=== PATIENT | female | born 1955 | race African-American/Black ===

== ENCOUNTER 2017-12-28 16:08 | Emergency (ER) | payer OTHER ==
[2017-12-28] MEDS ORDERED: NA CHLORIDE 0.9% 1,000 ML ONE (17:09)
--- NOTE | 2017-12-28 17:14 | RAD REPORT ---
EXAM DESCRIPTION: CT - Head Brain Wo Cont - 12/28/2017 4:57 pm CLINICAL HISTORY: HTN, headache COMPARISON: No comparisons TECHNIQUE: All CT scans are performed using dose optimization technique as appropriate and may inclu de automated exposure control or mA/KV adjustment according to patient size. FINDINGS: No intracranial hemorrhage, hydrocephalus or extra-axial fluid collection.No areas of brai n edema or evidence of midline shift. The paranasal sinuses and mastoids are clear. The calvarium is intact. IMPRESSION: No acute intracranial abnormality.
[2017-12-28 17:22] LABS: Absolute Lymphocytes (CBC) 1.6 K/uL (0.7-4.9); Absolute Monocytes 0.9 K/uL (0.1-1.3); Absolute Neutrophil 3.5 K/uL (1.8-8.0); Eosinophils % 2.5 % (0-4.4); Hematocrit 38.8 % (36.0-45.0); Lymphocytes % 25.8 % (15.3-44.8); MCH 30.2 pg (27.0-35.0); MCV 90.9 fL (80-100); MPV 8.5 fL (7.6-11.3); Monocytes % 14.1 % (3.3-12.3); RBC Red Blood Cell Count 4.26 M/uL (3.86-4.86)
--- NOTE | 2017-12-28 17:25 | RAD REPORT ---
EXAM DESCRIPTION: RAD - Chest Single View - 12/28/2017 5:18 pm CLINICAL HISTORY: HTN Chest pain. COMPARISON: Chest Single View dated 12/16/2015; CHEST SINGLE VIEW dated 07/04/2011 FINDINGS: Portable technique limits examination quality. The lungs are grossly clear. The heart is normal in size. No displaced fractures. IMPRESSION: No acute intrathoracic process suspected.
[2017-12-28 17:44] LABS: ALT/SGPT 20 U/L (12-78); AST/SGOT 18 U/L (15-37); Albumin 3.9 g/dL (3.4-5.0); Alkaline Phosphatase 62 U/L (45-117); BUN Blood Urea Nitrogen 14 mg/dL (7-18); Bicarbonate 29 mmol/L (21-32); Bilirubin Direct < 0.1 mg/dL (0-0.2); Bilirubin Total 0.3 mg/dL (0.2-1.0); CKMB Creatine Kinase MB 1.1 ng/mL (0.3-3.6); Creatine Phosphokinase 107 U/L (26-192); Glucose Level 88 mg/dL (74-106); Magnesium 2.3 mg/dL (1.8-2.4); Potassium 4.2 mmol/L (3.5-5.1); Protein, Total 7.8 g/dL (6.4-8.2); Sodium Level 139 mmol/L (136-145)
[2017-12-28 17:49] LABS: Protime INR 1.08
--- NOTE | 2017-12-28 18:05 | EDPHYS ---
Physician Documentation [facility] Name: Andreina Nguyen Age: 62 yrs Sex: Female : 1955 Arrival Date: 12/28/2017 Time: 16:10 Bed 20 Private MD: Kulwant Will B ED Physician Javier Armendariz HPI: 12/28 16:47 This 62 yrs old Black Female presents to ER via Ambulatory with complaints of High cp Blood Pressure. 16:47 The patient has elevated blood pressure and discovered this at home, with a home device.cp 16:50 Onset: The symptoms/episode began/occurred past few days. cp 16:50 Associated signs and symptoms: Pertinent positives: headache earlier today that cp resolved after taking aspirin, Pertinent negatives: chest pain, dizziness, dyspnea, vomiting. Severity of symptoms: in the emergency department the blood pressure is systolic of 184. Historical: - Allergies: 16:45 Sulfa (Sulfonamide Antibiotics); rv 16:45 Doxycycline; rv - Home Meds: 16:45 pilocarpine 5mg [Active]; alendronate 70 mg oral tab 1 tab once wkly [Active]; rv fexofenadine Oral [Active]; Docusate Sodium 50MG/TAB Oral 1 cap 2 times per day [Active]; Benefiber Sugar Free (dextrin) oral oral [Active]; hydroxychloroquine oral oral 1 tab 2 times per day [Active]; Valacyclovir Oral [Active]; FLUTICASONE [Active]; Vitamin D Oral [Active]; Naproxen Oral [Active]; - PMHx: 16:45 None; rv - PSHx: 16:45 None; rv - Immunization history:: Adult Immunizations up to date, Flu vaccine is not up to date. It has been more than one year since last vaccine. - Social history:: Smoking status: Patient/guardian denies using tobacco, never smoked. - Ebola Screening: : Patient negative for fever greater than or equal to 101.5 degrees Fahrenheit, and additional compatible Ebola Virus Disease symptoms Patient denies exposure to infectious person Patient denies travel to an Ebola-affected area in the 21 days before illness onset. ROS: 16:50 Constitutional: Negative for body aches, chills, fever, poor PO intake. cp 16:50 Eyes: Negative for injury, pain, redness, and discharge. cp 16:50 ENT: Negative for drainage from ear(s), ear pain, sore throat, difficulty swallowing, difficulty handling secretions. 16:50 Cardiovascular: Negative for chest pain, edema, palpitations. 16:50 Respiratory: Negative for cough, shortness of breath, wheezing. 16:50 Abdomen/GI: Negative for abdominal pain, nausea, vomiting, and diarrhea, black/tarry stool, rectal bleeding. 16:50 Back: Negative for pain at rest, pain with movement, radiated pain. 16:50 : Negative for urinary symptoms. 16:50 Skin: Negative for cellulitis, rash. 16:50 Neuro: Negative for altered mental status, dizziness, headache, loss of consciousness, syncope, near syncope, weakness. 16:50 All other systems are negative. Exam: 16:55 ECG was reviewed by the Attending Physician. cp 16:57 Constitutional: The patient appears in no acute distress, alert, awake, cp non-diaphoretic, non-toxic, well developed, well nourished. 16:57 Head/Face: Normocephalic, atraumatic. Eyes: Pupils equal round and reactive to light, cp extra-ocular motions intact. Lids and lashes normal. Conjunctiva and sclera are non-icteric and not injected. Cornea within normal limits. Periorbital areas with no swelling, redness, or edema. ENT: Nares patent. No nasal discharge, no septal abnormalities noted. Tympanic membranes are normal and external auditory canals are clear. Oropharynx with no redness, swelling, or masses, exudates, or evidence of obstruction, uvula midline. Mucous membranes moist. Neck: Trachea midline, no thyromegaly or masses palpated, and no cervical lymphadenopathy. Supple, full range of motion without nuchal rigidity, or vertebral point tenderness. No Meningismus. Chest/axilla: Normal chest wall appearance and motion. Nontender with no deformity. No lesions are appreciated. 16:57 Cardiovascular: Rate: normal, Rhythm: regular, Pulses: Pulses are 2+ in right radial artery and left radial artery. Heart sounds: murmur, not appreciated, rub, not appreciated, gallop, not appreciated, Edema: is not appreciated, JVD: is not appreciated. 16:57 Respiratory: the patient does not display signs of respiratory distress, Respirations: normal, no use of accessory muscles, no retractions, no splinting, no tachypnea, labored breathing, is not present, Breath sounds: are clear throughout, no decreased breath sounds, no stridor, no wheezing. 16:57 Abdomen/GI: Inspection: abdomen appears normal, Bowel sounds: active, all quadrants, Palpation: abdomen is soft and non-tender, in all quadrants, rebound tenderness, is not appreciated, voluntary guarding, is not appreciated, involuntary guarding, is not appreciated. 16:57 Back: pain, is absent, ROM is normal. 16:57 Skin: cellulitis, is not appreciated, no rash present. 16:57 Neuro: Orientation: to person, place \T\ time. Mentation: lucid, able to follow commands, Cerebellar function: is grossly normal, Motor: moves all fours, strength is normal, Sensation: is normal, Gait: is steady. Vital Signs: 17:00 BP 184 / 83; Pulse 78; Resp 16; Temp 97.3; Pulse Ox 100% ; Weight 83.91 kg (R); Height rv 5 ft. 9 in. (175.26 cm) (R); 17:20 BP 158 / 83; Pulse 70; Pulse Ox 100% on R/A; rv 18:25 BP 143 / 76; Pulse 68; Resp 17; Pulse Ox 98% on R/A; rv 17:00 Body Mass Index 27.32 (83.91 kg, 175.26 cm) rv MDM: 16:29 Patient medically screened. cp 18:01 Data reviewed: vital signs, nurses notes, lab test result(s), EKG, radiologic studies, cp CT scan, plain films, and as a result, I will discharge patient. 18:01 Differential diagnosis: hypertensive crisis, Malignant HTN, CVA, intracerebral cp hemorrhage, cardiac arrythmia. Counseling: I had a detailed discussion with the patient and/or guardian regarding: the historical points, exam findings, and any diagnostic results supporting the discharge/admit diagnosis, the presence of at least one elevated blood pressure reading (>120/80) during this emergency department visit, lab results, radiology results, the need for outpatient follow up, a family practitioner, to return to the emergency department if symptoms worsen or persist or if there are any questions or concerns that arise at home. Response to treatment: the patient's symptoms have markedly improved after treatment, and as a result, I will discharge patient. 12/28 16:43 Order name: Basic Metabolic Panel; Complete Time: 17:51 cp 12/28 16:43 Order name: CBC with Diff; Complete Time: 17:51 cp 12/28 17:52 Interpretation: Normal except: MN% 14.1. cp 12/28 16:43 Order name: Ckmb; Complete Time: 17:51 cp 12/28 16:43 Order name: CPK; Complete Time: 17:51 cp 12/28 16:43 Order name: LFT's; Complete Time: 17:51 cp 12/28 17:52 Interpretation: Normal except: GLOB 3.9; A/G 1.0. cp 12/28 16:43 Order name: Magnesium; Complete Time: 17:51 cp 12/28 16:43 Order name: CT Head Brain wo Cont; Complete Time: 17:26 cp 12/28 17:26 Interpretation: Report reviewed. 12/28 16:43 Order name: PT-INR; Complete Time: 17:51 12/28 17:52 Interpretation: PT 12.7; Reviewed. 12/28 16:43 Order name: Ptt, Activated; Complete Time: 17:51 12/28 16:43 Order name: Troponin (emerg Dept Use Only); Complete Time: 17:51 12/28 16:43 Order name: XRAY Chest (1 view); Complete Time: 17:26 12/28 17:05 Order name: Urine Dipstick--Ancillary (enter results) bd 12/28 16:43 Order name: EKG; Complete Time: 16:43 12/28 16:43 Order name: Cardiac monitoring; Complete Time: 17:25 12/28 16:43 Order name: EKG - Nurse/Tech; Complete Time: 17:25 cp 12/28 16:43 Order name: IV Saline Lock; Complete Time: 17:25 12/28 16:43 Order name: Labs collected and sent; Complete Time: 17:25 cp 12/28 16:43 Order name: O2 Per Protocol; Complete Time: 17:25 cp 12/28 16:43 Order name: O2 Sat Monitoring; Complete Time: 17:25 cp 12/28 16:43 Order name: Urine Dipstick-Ancillary (obtain specimen); Complete Time: 17:26 12/28 17:12 Order name: Vital Signs; Complete Time: 17:24 cp EC:55 Rate is 75 beats/min. Rhythm is regular. NE interval is normal. QRS interval is normal. cp QT interval is normal. T waves are Flattened in lead aVL. Interpreted by me. Reviewed by me. Administered Medications: 17:25 Drug: NS 0.9% 500 ml Route: IV; Rate: bolus; Site: right antecubital; rv 17:45 Drug: NS 0.9% 1000 ml Route: IV; Rate: 125 ml/hr; Site: right antecubital; rv 18:05 Follow up: IV Status: Order to discontinue infusion rv Disposition: 18:42 Co-signature as Attending Physician, Javier Armendariz MD. rn Disposition: 12/28/17 18:02 Discharged to Home. Impression: Elevated blood-pressure reading, without diagnosis of hypertension. - Condition is Stable. - Discharge Instructions: How to Take Your Blood Pressure, [id number], DASH Eating Plan, Form - Blood Pressure Record Sheet. - Medication Reconciliation Form, Thank You Letter, Antibiotic Education, Prescription Opioid Use form. - Follow up: Private Physician; When: 12/30/2017; Reason: Recheck today's complaints. - Problem is new. - Symptoms have improved. Signatures: Dispatcher [employer] EDMS Javier Armendariz MD MD rn Brian Baldwin PA PA cp Luis A Breaux, RN RN rv Corrections: (The following items were deleted from the chart) 18:27 18:02 12/28/2017 18:02 Discharged to Home. Impression: Elevated blood-pressure reading, rv without diagnosis of hypertension. Condition is Stable. Forms are Medication Reconciliation Form, Thank You Letter, Antibiotic Education, Prescription Opioid Use. Follow up: Private Physician; When: 12/30/2017; Reason: Recheck today's complaints. Problem is new. Symptoms have improved. cp
--- NOTE | 2017-12-28 18:05 | ER ---
Nurse's Notes [facility] Name: Andreina Nguyen Age: 62 yrs Sex: Female : 1955 Arrival Date: 12/28/2017 Time: 16:10 Bed 20 Private MD: Kulwant Will B Diagnosis: Elevated blood-pressure reading, without diagnosis of hypertension Presentation: 12/28 16:38 Presenting complaint: Patient states: "MY BLOOD PRESSURE IS HIGH THESE PAST FEW DAYS." rv NO CHEST PAIN. Transition of care: patient was not received from another setting of care. Onset of symptoms was December 28, 2017 at 15:00. Risk Assessment: Do you want to hurt yourself or someone else? Patient reports no desire to harm self or others. Initial Sepsis Screen: Does the patient meet any 2 criteria? No. Patient's initial sepsis screen is negative. Does the patient have a suspected source of infection? No. Patient's initial sepsis screen is negative. Care prior to arrival: None. 16:38 Method Of Arrival: Ambulatory rv 16:38 Acuity: ANU 3 rv Historical: - Allergies: 16:45 Sulfa (Sulfonamide Antibiotics); rv 16:45 Doxycycline; rv - Home Meds: 16:45 pilocarpine 5mg [Active]; alendronate 70 mg oral tab 1 tab once wkly [Active]; rv fexofenadine Oral [Active]; Docusate Sodium 50MG/TAB Oral 1 cap 2 times per day [Active]; Benefiber Sugar Free (dextrin) oral oral [Active]; hydroxychloroquine oral oral 1 tab 2 times per day [Active]; Valacyclovir Oral [Active]; FLUTICASONE [Active]; Vitamin D Oral [Active]; Naproxen Oral [Active]; - PMHx: 16:45 None; rv - PSHx: 16:45 None; rv - Immunization history:: Adult Immunizations up to date, Flu vaccine is not up to date. It has been more than one year since last vaccine. - Social history:: Smoking status: Patient/guardian denies using tobacco, never smoked. - Ebola Screening: : Patient negative for fever greater than or equal to 101.5 degrees Fahrenheit, and additional compatible Ebola Virus Disease symptoms Patient denies exposure to infectious person Patient denies travel to an Ebola-affected area in the 21 days before illness onset. Screenin:22 Abuse screen: Denies threats or abuse. Denies injuries from another. Nutritional rv screening: No deficits noted. Tuberculosis screening: No symptoms or risk factors identified. Fall Risk None identified. Assessment: 16:46 General: Appears in no apparent distress. comfortable, Behavior is calm, cooperative. rv Pain: Denies pain. Neuro: Level of Consciousness is awake, alert, obeys commands, Oriented to person, place, time, situation. Cardiovascular: Capillary refill < 3 seconds. Respiratory: Reports. GI: No signs and/or symptoms were reported involving the gastrointestinal system. : No signs and/or symptoms were reported regarding the genitourinary system. EENT: No signs and/or symptoms were reported regarding the EENT system. Derm: Skin is intact. Vital Signs: 17:00 BP 184 / 83; Pulse 78; Resp 16; Temp 97.3; Pulse Ox 100% ; Weight 83.91 kg (R); Height rv 5 ft. 9 in. (175.26 cm) (R); 17:20 BP 158 / 83; Pulse 70; Pulse Ox 100% on R/A; rv 18:25 BP 143 / 76; Pulse 68; Resp 17; Pulse Ox 98% on R/A; rv 17:00 Body Mass Index 27.32 (83.91 kg, 175.26 cm) rv ED Course: 16:10 Patient arrived in ED. mr 16:10 Kulwant Will MD is Private Physician. mr 16:29 [facility]. cp 16:29 Javier Armendariz MD is Attending Physician. cp 16:39 Triage completed. rv 16:57 CT Head Brain wo Cont In Process Unspecified. EDMS 17:13 EKG done, by area intelligence technician. reviewed by Brian BAILEY. sm3 17:15 Inserted saline lock: 20 gauge in right antecubital area, using aseptic technique. rv 17:18 XRAY Chest (1 view) In Process Unspecified. EDMS 18:26 No provider procedures requiring assistance completed. Patient did not have IV access rv during this emergency room visit. 18:26 Arm band placed on right wrist. rv 18:27 Patient has correct armband on for positive identification. Bed in low position. Side rv rails up X 1. Pulse ox on. Administered Medications: 17:25 Drug: NS 0.9% 500 ml Route: IV; Rate: bolus; Site: right antecubital; rv 17:45 Drug: NS 0.9% 1000 ml Route: IV; Rate: 125 ml/hr; Site: right antecubital; rv 18:05 Follow up: IV Status: Order to discontinue infusion rv Outcome: 18:02 Discharge ordered by . cp 18:26 Discharged to home ambulatory. rv 18:26 Condition: good 18:26 Discharge instructions given to patient, Instructed on discharge instructions, follow up and referral plans. 18:27 Patient left the ED. rv Signatures: Dispatcher [employer] EDCA Lexis Clifford Corey, PA PA cp Montes, Shakira 3 Luis A Breaux, RN RN rv
[2017-12-28 18:21] LABS: Urine Blood TRACE (NEG); Urine Glucose NEGATIVE (NEG); Urine Protein NEGATIVE (NEG)
[2017-12-28 18:49] VITALS: TEMP 97.3
[2017-12-28 18:51] VITALS: BP 143/76; O2SAT 98
--- NOTE | 2017-12-29 07:21 | EKG ---
Test Date: 2017-12-28 Test Time: 16:47:30 Relay Associate: AURELIA MEASUREMENT RESULTS: Intervals: Rate: 75 VT: 144 QRSD: 80 QT: 386 QTc: 431 [place]: P: 49 VT: 144 QRS: 31 T: 61 INTERPRETIVE STATEMENTS: Normal sinus rhythm Normal ECG Compared to ECG 12/16/2015 20:06:20 No significant changes Electronically Signed On 12-29-17 07:20:21 CDT by Benjamín Guadalupe
== END 2017-12-28 18:27 | disposition home or self-care (01) ==
LOC: ER 16:08
DX: R03.0 Elevated blood-pressure reading, without diagnosis of hypertension (principal); Z88.1 Allergy status to other antibiotic agents; Z88.2 Allergy status to sulfonamides
CPT/HCPCS: 36415; 70450; 71045; 80048; 80076; 81003; 82550; 82553; 83735; 84484; 85025; 85610; 85730; 93005; 99284; J7030

== ENCOUNTER 2019-04-10 15:53 | Inpatient (IN) | payer OTHER ==
--- OUTSIDE RECORDS SUMMARY | 2019-04-10 15:59 | XMS REPORT | Summary of Care ---
:1955 Author Organization [facility] [place] [address] Care Team Providers Name Role Phone Kulwant Will MD Primary Care Provider Reason for Visit Reason Comments Disease Management Encounter Details Date Type Department Care Team Description [facility] Rhe[facility] [address] [facility] [address] [facility] 8th Floor, [address] [place] [address] [place], [place] [id number] Allergies Active Allergy Reactions Severity Noted Date Comments Doxycycline Rash 02/22/2015 Bactrim Ds Hives 02/22/2015 documented as of this encounter (statuses as of 01/23/2019) Medications Medication Sig Dispensed Refills Start Date End Date Status fluticasone (FLONASE) 50 1 [place] by 0 Active MCG/ACT nasal spray Each Nostril route as needed. Vitamin D, Take by mouth 0 Active Cholecalciferol, 1000 daily. UNITS TABS valacyclovir (VALTREX) 1 0 09/13/2015 Active GM tablet Fexofenadine HCl (CHANCE Take by 0 Active OR) mouth. docusate sodium (COLACE) Take 50 mg by 0 Active 50 MG capsule mouth two times daily. Wheat Dextrin (BENEFIBER Take by 0 Active OR) mouth. irbesartan (AVAPRO) 75 MG Take 75 mg by 0 12/30/2017 Active tablet mouth nightly. PILOCARPINE HCL, ORAL, 5 TAKE 1 TABLET 90 Each 5 07/25/2018 Active MG TABSIndications: in PM Primary Sjogren's syndrome (HCCode) alendronate (FOSAMAX) 70 TAKE 1 TAB BY 12 Tab 2 12/26/2018 Active MG tablet MOUTH EVERY 7 DAYS. PILOCARPINE HCL, ORAL, 5 TAKE 1 TABLET 90 Each 1 01/10/2019 Active MG TABSIndications: EVERY Primary Sjogren's syndrome EVENING. (HCCode) hydroxychloroquine TAKE 1 TABLET 180 Tab 1 01/16/2019 Active (PLAQUINIL) 200 MG BY MOUTH TWICE tabletIndications: Primary A DAY Sjogren's syndrome (HCCode) documented as of this encounter (statuses as of 01/23/2019) Active Problems Patient Care Coordination Note PCP Dr. 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 documented as of this encounter Last Filed Vital Signs Vital Sign Reading Time Taken Comments Blood Pressure 155/88 01/23/2019 10:09 AM CDT Pulse 81 01/23/2019 10:09 AM CDT Temperature 36.8 C (98.3 F) 01/23/2019 10:09 AM CDT Respiratory Rate 17 01/23/2019 10:09 AM CDT Oxygen Saturation 100% 01/23/2019 10:09 AM CDT Inhaled Oxygen Concentration - - Weight 86 kg (189 lb 9.6 oz) 01/23/2019 10:09 AM CDT Height 175.3 cm (5' 9") 01/23/2019 10:09 AM CDT Body Mass Index 28 01/23/2019 10:09 AM CDT documented in this encounter Progress Notes Monique Dutton MD - 01/23/2019 9:45 AM CDT Andreina Nguyen is a 63 y.o. 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/SCL70/Jo1/ centromere negative Initially presented with bilateral parotid swelling-in 12/22 right parotid was swollen-no pain was treated with antibiotics and resolved over a week.Also dry eyes-documented by hardboard supervisor over 2 yearsago Has dental issues-needing dental implants/dentures Reports dryness makes difficulty swallowing No cough,sob -has maculopapular rash in sun exposed areas/upper back/buttocks-- no biopsy in the past.Skin rash-did not improve with antibiotics/topicals with local buttonholer-saw dermatology at [facility]-no biopsy-but diagnosed with Prurigo nodularis Also reported arthralgis in hands,wrist ,feet-AM stiffness lasts about an hour -not daily and takes Aleive .Frquent flares with hand/knee arthralgias lasting weeks.Started on Plaquenil 200 mg BID in01/23-has done well with this with fewer less intense flares-very occasional joint swelling at this time - feels less AM stiffness With Pilocarpine- no further episodes of glandular swelling Lost 25 pounds with lifestyle changes and feeling well and is maintaining Osteoporosis-was on Boniva improved-and now Fosamax-last DEXA 05/27 Has been seeing dermatology for prurigo nodularis on biopsy-covered entire /back /upper thighs-is on Minocycline Last seen 07/26-doing well-No new prurigo nodularis in well over a year Dryness itself doing well-with pilocarpine at night-causes flushing-no gland swelling No joint pain Continues to do well with arthritis,salivary swelling,sicca Numbness in back of right leg Plaquenil eye exam reviewed and scanned Past Medical History: Diagnosis Date Breast cyst cleared Postmenopausal REVIEW OF SYSTEMS: Constitutional: negative HEENT: parotiditis improved Cardiovascular: negative Respiratory: negative Genitourinary: negative Musculoskeletal:as in HPI GI:negative Skin: diffuse skin rash Neuro: negative Endo: negative Hemat: no cytopenias Psych:negative PHYSICAL EXAM Vitals: 01/23/19 1009 BP: 155/88 BP Location: left arm Patient Position: Sitting Cuff Size: regular Pulse: 81 Resp: 17 Temp: 98.3 F (36.8 C) SpO2: 100% Weight: 189 lb 9.6 oz (86 kg) Height: 5' 9" (1.753 m) Gen: Pleasant , well built in no acute distress; HEENT: No pallor or icterus; Moist mucus membranes. No oral or nasal ulcers; normal salivary pool.Nolacrimal enalrgement or conjunctival redness Neck: supple,no lymphadenopathy. Bilateral parotid enlargement-no tenderness Cardiovascular: regular rate and rhythm Respiratory: clear to auscultation bilaterally Gastrointestinal: soft, non-tender, non-distended, no liver, spleen or abnormal masses palpated Extremities:No clubbing, cyanosis or edema Musculoskeletal: No synovitis or tenderness -full range of motion of bilateral upper and lower extremities-puffiness in PIPs on right Neuro: No focal neurological deficits grossly Skin: Hyperpigmented healed lesions/back LABS REVIEWED IMPRESSION AND PLAN Primary Sjogren's syndrome Ms Nguyen has significant oral and ocular sicca,positive Ro antibodies associated with one episode ofsialolithiasis in parotid.No evidence of extraglandular complications at this time.Also no evidence of an overlap autoimmune disease clinically or immunologically Continue management or oral and ocular dryness-periodic eye/dental exams Continue Pilocarpine for preventing repeat episodes of sialadenitis-improved arthralgias/stiffness with Plaquenil Update labs todayinflammation markers,SPEP- Recent vitamin D 33 Skin rash Not concerning for SCLE per dermatology-on topical Clobetsol-refilled No clear response to plaquenil over 2 years -but improved with minocycline Periodic sialadenosis Discussed management of salivary gland swelling/pain Pilocarpine helped decrease frequency of swelling in gland in addition to hyration - PILOCARPINE HCL, ORAL, 5 MG TABS; Take 5 mg by mouth at bedtime. Therapeutic Drug Monitoring Plaquenil eye examok Osteopenia DEXA reviewed T score minus 2.9 in spine-05/27-Is on Fosamax RTC 6 months or sooner with any new issues documented in this encounter Plan of Treatment Name Type Priority Associated Diagnoses Order Schedule CBC W/AUTO DIFF WITH Lab Routine Therapeutic drug Ordered: 01/23/2019 PLATELETS monitoring SEDIMENTATION RATE MODIFIED Lab Routine Primary Sjogren's Ordered: 2018 WESTERGREN syndrome (HCCode) COMPREHENSIVE METABOLIC Lab Routine Therapeutic drug Ordered: 01/23/2019 PANEL monitoring C-REACTIVE PROTEIN Lab Routine Primary Sjogren's Ordered: 01/23/2019 syndrome (HCCode) IMMUNOFIXATION + PROTEIN Lab Routine Primary Sjogren's Ordered: 01/23/2019 ELECTROPHORESIS - SERUM syndrome (HCCode) VITAMIN D 25 HYDROXY Lab Routine Primary Sjogren's Ordered: 01/23/2019 syndrome (HCCode) URINALYSIS, COMPLETE Lab Routine Microscopic hematuria Ordered: 01/23/2019 W/REFLEX TO CULTURE RANDOM URINE Lab Routine Microscopic hematuria Ordered: 01/23/2019 PROTEIN/CREATININE Health Maintenance Due Date Last Done Comments COLON CANCER SCREENING: COLONOSCOPY 1955 MAMMOGRAM ANNUAL 1955 TETANUS SHOT (ADULT) 1970 BMI FOLLOW UP PLAN 1973 HEPATITIS C SCREENING 1973 HIV SCREENING 1973 CERVICAL CANCER SCREENING 3 YEAR FOLLOW UP 1976 FLU VACCINE > 6 MONTHS 12/08/2018 documented as of this encounter Results Not on filedocumented in this encounter Visit Diagnoses Diagnosis Primary Sjogren's syndrome (HCCode) - Primary Sicca syndrome Hypergammaglobulinemia Other specified diseases of blood and blood-forming organs Therapeutic drug monitoring Encounter for therapeutic drug monitoring Microscopic hematuria documented in this encounter Insurance Payer Benefit Plan / Subscriber ID Effective Dates Phone Address Type Group [facility] CHOICE/CHOICE xxxxxxxxx 2014-Present [address] [address] PPO PLUS/[facility] [address] documented as of this encounter
[2019-04-10] MEDS: Ringers Lactate 1,000 ML IV SCH ×2 (17:00→23:47)
[2019-04-10 17:01] LABS: Absolute Lymphocytes (CBC) 1.7 K/uL (0.7-4.9); Basophils % 0.6 % (0-1.3); Hematocrit 34.2 % (36.0-45.0); MPV 8.5 fL (7.6-11.3); RBC Red Blood Cell Count 3.78 M/uL (3.86-4.86)
[2019-04-10 17:09] VITALS: BMI 28.3
[2019-04-10 17:19] LABS: BUN Blood Urea Nitrogen 16 mg/dL (7-18); Bicarbonate 27 mmol/L (21-32); Glucose Level 81 mg/dL (74-106); Potassium 3.8 mmol/L (3.5-5.1); Sodium Level 142 mmol/L (136-145)
[2019-04-10] MEDS ORDERED: VANCOMYCIN/NS 1 gm 1 GM/250 ML BAG IVPB SCH (17:45)
[2019-04-10] MEDS ORDERED: PIPER/TAZO/NS 3.375gm 3.375 GM/100 ML BAG IVPB SCH (18:00)
--- NOTE | 2019-04-10 18:33 | RAD REPORT ---
EXAM DESCRIPTION: RAD - Chest Single View - 04/10/2019 6:19 pm CLINICAL HISTORY: cough Chest pain. COMPARISON: Chest Single View dated 12/28/2017; Chest Single View dated 12/16/2015; CHEST SINGLE VIEW d ated 07/04/2011 FINDINGS: Portable technique limits examination quality. The lungs are grossly clear. The heart is normal in size. No displaced fractures. IMPRESSION: No acute intrathoracic process suspected.
[2019-04-10] MEDS ORDERED: INFLUENZA VACCINE (for 3y+) 0.5 ML DOSE IMVAC ONE (20:00)
[2019-04-10] MEDS: HYDROCODONE/APAP 7.5/325 MG TAB PO PRN ×2 (20:06→23:59)
[2019-04-10] MEDS ORDERED: IRBESARTAN 75 MG PO SCH (21:00)
[2019-04-10] MEDS ORDERED: PILOCARPINE HCL 5 MG PO SCH (21:00)
--- NOTE | 2019-04-10 22:00 | CON ---
Date of Consultation: 04/10/2019 Brief History Of Present Illness: Patient is a pleasant 63-year-old female, who was seen by Dr. Lenka mercado in her office earlier in the day, who developed a right buttock swelling, pain, tenderness, redn ess, and spontaneous drainage of pus, beginning approximately 3 days ago. She went saw Dr. Hayden today, who deemed her appropriate for admission with IV antibiotics and asked that I see her for inci jessica and drainage of this abscess. Patient has not had similar episodes before in the past. She has Sjogren disease, but does not have any other sequelae of infectious disease at this time. She has h ad no systemic complaints. No constitutional complaints as well. Past Medical History: Significant for Sjogren disease, hypertension. Past Surgical History: Tubal ligation and tonsillectomy. Allergies: BACTRIM, DOXYCYCLINE. Home Medications: She has been taking aspirin p.o. Social History: She denies smoking, alcohol, or recreational drug use. Review of Systems: A 10-point review of systems other than HPI, denies. Physical Examination: General: At the time of my examination, she is awake, alert, and oriented. Psychiatric: She is appropriate and conversive. HEENT: She is normocephalic. Sclerae are anicteric. Mucous membranes are moist. Oropharynx is kemar ar. Neck: Supple. No JVD. Chest: Normal expansion and excursion. Cardiovascular: Regular rate and rhythm. Pulmonary: Clear to auscultation bilaterally. Abdomen: Soft, nontender, nondistended. No rebound or guarding. No focal peritonitis. Extremities: No clubbing, cyanosis, or edema. Focused examination of the back, she has a right butt ock abscess with purulent drainage consistent with a proximally 5 cm abscess in the subcutaneous posi tion of the right buttock. There is spontaneous drainage of purulent fluid and small cellulitis arou nd this area. Imaging And Laboratory Data: She has had no imaging performed. No labs were performed as well. Assessment And Plan: This is a 63-year-old female, who comes in with signs and symptoms of a right b uttock abscess. 1.IV fluid hydration. 2.Antibiotic coverage to Zosyn. 3.I have explained the risks, benefits, alternatives, incision and drainage of this buttock abscess. Patient agrees to proceed as indicated. TK/GELA Voice ID: [id number] Report ID: [id number]
[2019-04-10] MEDS: ONDANSETRON 4 MG/2 ML VIAL IV PRN (22:02)
--- NOTE | 2019-04-10 22:24 | CON ---
Date of Consultation: 04/10/2019 Additional Attending Physician: Rosario Hayden MD Reason For Consultation: Medical management. History Of Present Illness: Patient is a 63-year-old female with past medical history of hypertensio n, Sjogren syndrome, who was in her usual state of health until Wednesday. The day before Vee mendoza, patient had pain in her right buttocks, noticed some swelling and redness. Patient took some ibu profen and BC Powder when ibuprofen did not work for the pain. She does report some subjective fever and chills as well as some generalized malaise. Otherwise, denies any trauma. No insect bites or o ther abrasions to that area. Patient then contacted her PRESS HAND SUPERVISOR, Dr. Hayden, for further evaluation an d was admitted to the hospital. Patient's symptoms are constant, moderate, progressively worsening. Patient is immunocompromised, is on DMARDs for her Sjogren syndrome. Hospitalist service was consul nathan for medical management regarding her abscess. When seen on the floor, she was awake, alert, orie nted x3, in some mild discomfort due to pain. Past Medical History: Hypertension, Sjogren syndrome. Surgical History: Tonsillectomy and tubal ligation. Allergies: TO BACTRIM, WHICH CAUSES RASH AND TO DOXYCYCLINE, WHICH CAUSES MACULOPAPULAR RASH. Medications: List reviewed. Social History: Patient denies any tobacco use, alcohol use, or illicit drug use. Patient is indepe ndent in her activities of daily living. Family History: Brother had lung cancer. Other brother had liver cancer. Sister developed bladder cancer. Review of Systems: 10-point system reviewed, negative except as per HPI. Physical Examination: Vital Signs: Heart rate 80, blood pressure 152/80, respirations 19, O2 95% on room air. General: Awake, alert, oriented x3, in some mild distress, elderly female, somewhat ill appearing. HEENT: Normocephalic, atraumatic. PERRLA. EOMI. Dry mucous membranes. Oropharynx is clear. Conj unctivae anicteric. Neck: Supple. No JVD. Trachea midline. CV: S1, S2. Regular rate and rhythm. Peripheral pulses present. Respiratory: Moving air well bilaterally. No wheezing or stridor. No use of accessory muscles. Gastrointestinal: Abdomen is soft, nontender, nondistended. Positive bowel sounds. No guarding or rigidity. Extremities: No clubbing, cyanosis, or edema. No calf tenderness. Neuro: Cranial nerves 2 through 12 intact grossly. No focal neurological deficit. Speech is normal . Strength is 5/5 in bilateral upper and lower extremities. Sensation intact to light touch. Skin: Right buttock abscess with induration and pustular drainage mixed with blood, tender to palpat ion, surrounding erythema, warm to touch. Psych: Mood is okay. Affect is full. Insight and judgment are good. Laboratory Data: Sodium 142, potassium 3.8, chloride 110, CO2 27, BUN 16, creatinine 0.73, glucose 8 1, calcium 8.8. WBC 11.4, H and H 11.5 and 34.2, platelets 226, neutrophils 72%. Assessment: 63-year-old female: 1.Right gluteal abscess. We will start on broad spectrum IV antibiotics. Patient is already on Zos yn. We will add vancomycin for gram-positive coverage. We will obtain wound culture. Dr. Brian blackburn be taking the patient for I and D in a.m. No signs of sepsis. We will check procalcitonin. Whi te blood cell count is elevated. Patient has fevers and chills. Patient is immunocompromised due to being on DMARDs. We will need to cover for methicillin-resistant Staphylococcus aureus. 2.Essential hypertension. We will resume home medications. 3.Ovarian syndrome. We will hold Plaquenil for now due to acute infection. Continue pilocarpine. 4.Deep venous thrombosis prophylaxis with SCDs. No chemical anticoagulation due to anticipated surg martinez. Plan: Check EKG, chest x-ray. Follow up on procalcitonin level and follow up on wound cultures. We will direct antibiotic therapy based on that. Thank you for the opportunity to participate in your patient's care. We will follow along with you. QUINTON Voice ID: [id number] Report ID: [id number]
[2019-04-11 04:28] LABS: Absolute Lymphocytes (CBC) 1.8 K/uL (0.7-4.9); Basophils % 0.4 % (0-1.3); Hematocrit 31.4 % (36.0-45.0); Lymphocytes % 18.7 % (15.3-44.8); MPV 8.4 fL (7.6-11.3); RBC Red Blood Cell Count 3.46 M/uL (3.86-4.86)
[2019-04-11 05:14] LABS: Urine Appearance CLEAR; Urine Bilirubin NEGATIVE (NEG); Urine Blood 2+ (NEG); Urine Color YELLOW; Urine Glucose NEGATIVE (NEG); Urine Protein NEGATIVE (NEG)
[2019-04-11 05:22] LABS: Urine Microscopic Reflex ORDER UMIC
[2019-04-11 05:31] LABS: Urine Bacteria 20-50 /HPF (<20); Urine Culture Reflex Order REFLEXED
[2019-04-11] MEDS: PIPER/TAZO/NS 3.375gm 3.375 GM/100 ML BAG IVPB SCH ×2 (06:00→12:00)
[2019-04-11] MEDS: Ringers Lactate 1,000 ML IV SCH ×3 (07:23→17:00)
[2019-04-11] MEDS ORDERED: PROPOFOL 200 MG/20 ML VIAL IV ONE (07:28)
[2019-04-11] MEDS ORDERED: LIDOCAINE 2% MPF 5 ML VIAL ONE (07:29)
[2019-04-11] MEDS ORDERED: ONDANSETRON 4 MG/2 ML VIAL ONE (07:29)
[2019-04-11] MEDS ORDERED: FENTANYL CITR 100 MCG/2 ML ONE (07:29)
[2019-04-11] MEDS ORDERED: MIDAZOLAM HCL 2 MG/2 ML INJ ONE (07:29)
[2019-04-11] MEDS ORDERED: BUPIVACA 0.5%/EPI 0.0005%/PF 10 ML VIAL ONE (07:41)
--- NOTE | 2019-04-11 08:15 | P.OP ---
Preoperative diagnosis: RIGHT buttock abscess Postoperative diagnosis: RIGHT buttock abscess Primary procedure: Incision and Drainage of RIGHT buttock abscess Anesthesia: GETA + Local Estimated blood loss: <2cc Specimen: Cultures Sent Findings: multiloculated abscess ~6cm of RIGHT buttock Complications: None Transferred to: Recovery Room Condition: Good
[2019-04-11 08:57] VITALS: O2SAT 99
[2019-04-11] MEDS ORDERED: VANCOMYCIN/NS 1 gm 1 GM/250 ML BAG IVPB SCH (09:00)
[2019-04-11] MEDS: DOCUSATE NA 100 MG CAP PO SCH ×2 (09:00→11:04)
[2019-04-11] MEDS: ONDANSETRON 4 MG/2 ML VIAL IV PRN (11:13)
[2019-04-11] MEDS: HYDROCODONE/APAP 7.5/325 MG TAB PO PRN (11:14)
--- NOTE | 2019-04-11 14:29 | P.DS ---
Admission Date: 04/10/19 Discharge Date: 04/15/19 Disposition: ROUTINE DISCHARGE Discharge Condition: GOOD Reason for Admission: Right gluteal abscess Procedures: Incision and drainage of right gluteal abscess. Brief History of Present Illness: To 3-year-old woman with a history of Sjoegren's syndrome on DMARDs was referred by her disease case manager to be admitted for right gluteal abscess. Patient noted redness pain and swelling with spontaneous drainage of pus from the right gluteal region. She was diagnosed with an abscess and referred to be hospitalized here for further management. Hospital Course: Patient was admitted to the medical floor and started on broad-spectrum antibiotics which included IV Zosyn and vancomycin. She was seen by Dr. Torres -general surgery who performed incision and drainage. Patient stated her pain significantly improved after the I and D. Her I&D wound was packed and dressed. She has been afebrile. She did not meet criteria for sepsis. She is deemed clinically stable for discharge with outpatient antibiotics. She is prescribed Augmentin and clindamycin. She will follow with Dr. Torres within 1 week. Wound care with packing has been prescribed by Dr. Torres. Vital Signs/Physical Exam: Temp Pulse Resp BP Pulse Ox 96.9 F 70 16 121/65 99 04/11/19 12:00 04/11/19 12:00 04/11/19 12:00 04/11/19 12:00 04/11/19 12:00 Laboratory Data at Discharge: WBC 9.4 K/uL (4.3-10.9) D 04/11/19 04:12 Hgb 10.6 g/dL (12.0-15.0) L 04/11/19 04:12 Hct 31.4 % (36.0-45.0) L 04/11/19 04:12 Plt Count 205 K/uL (152-406) 04/11/19 04:12 Sodium 142 mmol/L (136-145) 04/10/19 16:50 Potassium 3.8 mmol/L (3.5-5.1) 04/10/19 16:50 BUN 16 mg/dL (7-18) 04/10/19 16:50 Creatinine 0.73 mg/dL (0.55-1.3) 04/10/19 16:50 Glucose 81 mg/dL (74-106) 04/10/19 16:50 Home Medications: Alendronate [Fosamax*] 10 mg PO WMP 04/10/19 Docusate [Colace Cap*] 100 mg DAILY 04/10/19 Hydroxychloroquine [Plaquenil*] 200 mg PO BID 04/10/19 Irbesartan [Avapro] 75 mg PO BEDTIME 04/10/19 Pilocarpine HCl 5 mg PO BEDTIME 04/10/19 Amoxicillin/Potassium Clav [Augmentin 875-125 Tablet] 1 each PO BID 7 Days #14 tablet 04/11/19 Clindamycin HCl 300 mg PO Q6H 5 Days #20 capsule 04/11/19 Hydrocodone 5/APAP 325 [[place] 5/325] 1 tab PO Q8HP PRN #10 tab 04/11/19 Ondansetron [Zofran] 4 mg PO Q8H PRN #20 tab 04/11/19 New Medications: Hydrocodone 5/APAP 325 [[place] 5/325] 1 tab PO Q8HP PRN #10 tab PRN Reason: Pain Scale 5-7 (Moderate) Amoxicillin/Potassium Clav [Augmentin 875-125 Tablet] 1 each PO BID 7 Days #14 tablet Clindamycin HCl 300 mg PO Q6H 5 Days #20 capsule Ondansetron [Zofran] 4 mg PO Q8H PRN #20 tab PRN Reason: Nausea / Vomiting Patient Discharge Instructions: - remove packing, irrigate with sterile water, repack with 1/2" iodoform packing, cover with sterile gauze Diet: Regular Activity: Ad don Followup: Eric Torres MD [ACTIVE - CAN ADMIT] - 1-2 Weeks (Call to schedule an appointment) Time spent managing pt's care (in minutes): 32
[2019-04-11 17:07] VITALS: BP 119/62; TEMP 97.6
--- NOTE | 2019-04-11 18:29 | OP ---
Date of Procedure: 04/11/2019 Surgeon: Eric Torres MD, Preoperative Diagnosis: Right buttock abscess. Postoperative Diagnosis: Right buttock abscess. Procedure Performed: An incision and drainage of right buttock abscess. Anesthesia: General endotracheal plus 0.5% Marcaine with epinephrine. Estimated Blood Loss: 2 mL. Specimen: Cultures sent for both aerobic and anaerobic speciation. Findings: Multiloculated abscess approximately 6 cm right of the right buttock. Complications: None. Disposition: Transferred to recovery room in good condition. Procedure In Detail: After informed consent was obtained, patient was brought to the operating room, prepped and draped in the usual sterile fashion. After adequate anesthesia was achieved, an area of necrotic skin was appreciated on the right buttock area approximately 6 cm size. I made a small ell iptical incision approximately 3 cm and took out the ellipse of skin which was significantly involved and necrotic. I dissected down to encounter multiloculated abscess cavity, which completely digitiz ed opened up. Cultures were sent for both aerobic and anaerobic speciation. I completely unroofed t he entire abscess cavity and used a curette to clean out all superficial surfaces. I irrigated the a will copiously, achieved hemostasis with electrocautery, irrigated the area once again and no addition al hemostatic measures required. The area was down to good clean bleeding tissue, which was easily c ontrolled with electrocautery as described. I then packed it with half-inch iodoform packing strip, placed sterile dressing on top. The patient tolerated the procedure. No evidence of complication. Transferred to PACU in good condition. All counts were correct at the end of the case. JANNET/GELA Voice ID: [id number] Report ID: [id number]
[2019-04-11] MEDS ORDERED: IRBESARTAN 150 MG TAB PO SCH (21:00)
== END 2019-04-11 17:38 | disposition home or self-care (01) | DRG 603 ==
LOC: 2ND-WC 15:53 → 2ND 18:07 → 4TH 18:32
PROVIDERS: ADMIT Obstetrics & Gynecology; ATTEND Obstetrics & Gynecology
PROC: 0H98XZX Drainage of Buttock Skin, External Approach, Diagnostic (ICD-10-PCS; principal; 2019-04-11 07:30)
DX: L02.31 Cutaneous abscess of buttock (principal); I10 Essential (primary) hypertension; M35.00 Sjogren syndrome, unspecified; Z23 Encounter for immunization
CPT/HCPCS: 36415; 71045; 80048; 81003; 81015; 84145; 85025; 87070; 87075; 87077; 87086; 87088; 87186; 87205; 88304; 90471; J2250; J2405; J2543; J2704; J3010; J3370; J7120; Q2035

== ENCOUNTER 2019-12-27 20:24 | Emergency (ER) | payer OTHER ==
--- OUTSIDE RECORDS SUMMARY | 2019-12-27 20:26 | XMS REPORT | Continuity of Care Document ---
:1955 Author Organization [facility] t Address [address] [place] [address] Care Team Providers Name Role Phone Gume Attending Clinician Unavailable Nato GAYTAN M Attending Clinician Problems This patient has no known problems. Allergies, Adverse Reactions, Alerts This patient has no known allergies or adverse reactions. Medications This patient has no known medications. Procedures This patient has no known procedures. Encounters Start End Encounter Admission Attending Care Care Encounter Source Date/Time Date/Time Type Type Clinicians Facility Department ID 2019-01-23 2019-01-23 Office CHRISTINA Dutton [id number] 09:29:50 10:57:22 Visit Monique M AMBULATOR [id number] Y [id number] Results Test Description Test Time Test Comments Results Result Comments Source MRI LUMBAR WO 2019-04-21 CLINICAL INDICATION: 10:24:10 R20.8 Other disturbances of skin sensation, right leg [id number] Low back painMODALITY: One[facility] 3T MRI TECHNIQUE: Multiplanar multi sequence MRI examination of the lumbar spine was performed.IMPRESSION :1. There are five lumbar vertebra without fracture or destructive osseous lesion.2. At L5-S1 there is mild disc degeneration, 5 mm broad-based right paracentral disc herniation with impingement of right S1 and right L5 nerve roots. Sis increased significantly compared with 08/14/2017.3. At L4-5 there is 2 mm broad-based protrusion, borderline central canal size and mild to moderate proximal foraminal and lateral recess narrowing.4. At L1-2 there is 3 mm right paracentral broad-based protrusion with mild effacement of ventral thecal sac. Central canal and foramen are patent.5. All facet joints demonstrate moderate - moderately severe hypertrophic degeneration with prominent ligamentum flavum.FINDINGS:JHONNY JEFFERSON: 08/14/2017, lumbar MRIGeneral observations: There are five lumbar vertebra with normal lordosis and alignment.Vertebral heights are well maintained without fracture or destructive osseous lesion.There is mild nuclear dehydration and spondylosis at each lumbar disc level. In general, however, disc heights are well maintained.There are no paraspinous or prevertebral masses.Conus medullaris and cauda equina are normal. Conus terminates at T12-L1.FINDINGS AT SPECIFIC LEVELS:L5-S1: Disc height is well-maintained. There is a 5 mm broad-based central and right lateralizing disc herniation with impingement of right S1 and exiting right L5 nerve roots. There is moderately severe proximal right foraminal stenosis. Central canal is patent. Left foramen is mildly narrowed. There is mild hypertrophic facet arthrosis and ligamentum flavum hypertrophy.L4-L5: Disc height is minimally reduced with nuclear dehydration and spondylosis. There is 2 mm broad-based posterior protrusion with borderline central canal stenosis. Moderate proximal foraminal and lateral recess stenosis is present. Moderate hypertrophic facet arthrosis with prominent ligamentum flavum noted bilaterally.L3-L4: Disc height and hydration are well maintained. Central canal and right foramen are patent. Left foramen is mildly narrowed. Facet joints are moderately hypertrophic and degenerated with prominent ligamentum flavum.L2-L3: Disc height is well-maintained. There is mild nuclear dehydration and spondylosis. Punctate central annular fissure is present. Central canal and foramen are patent. There is moderate hypertrophic facet arthrosis with mildly degenerated ligamentum flavum.L1-L2: There is broad-based 3 mm central and right lateralizing protrusion. Central canal and foramen are patent. Facet joints are mildly degenerated.
--- NOTE | 2019-12-27 21:59 | EDPHYS ---
Physician Documentation [facility] Name: Andreina Nguyen Age: 64 yrs Sex: Female : 1955 Arrival Date: 12/27/2019 Time: 20:31 Bed 19 Private MD: ED Physician Eliot Nesbitt HPI: 12/26 21:54 This 64 yrs old Black Female presents to ER via Wheelchair with complaints of Ankle jr8 Injury. 21:54 The patient presents with decreased range of motion, pain, that is acute, swelling, jr8 tenderness. The complaints affect the right ankle. Onset: The symptoms/episode began/occurred acutely, today. Context: The problem was sustained outdoors, resulted from a mis-step by the patient, on a curb, The mechanism of injury involved inversion of the affected ankle. The patient can partially bear weight on the affected extremity. the patient is able to ambulate, can ambulate using crutches. Associated signs and symptoms: The patient has no apparent associated signs or symptoms. Modifying factors: The symptoms are alleviated by nothing, the symptoms are aggravated by weight bearing, movement. Severity of symptoms: At their worst the symptoms were mild, in the emergency department the symptoms are unchanged. The patient has not experienced similar symptoms in the past. The patient has not recently seen a physician. Historical: - Allergies: 20:49 Doxycycline; ll1 20:49 Sulfa (Sulfonamide Antibiotics); ll1 - PSHx: 20:49 Incision and drainage-leg; ll1 - Immunization history:: Flu vaccine is up to date. - Social history:: Smoking status: Patient denies any tobacco usage or history of. Patient/guardian denies using alcohol, street drugs. ROS: 21:54 Eyes: Negative for injury, pain, redness, and discharge, ENT: Negative for injury, jr8 pain, and discharge, Neck: Negative for injury, pain, and swelling, Cardiovascular: Negative for chest pain, palpitations, and edema, Respiratory: Negative for shortness of breath, cough, wheezing, and pleuritic chest pain, Abdomen/GI: Negative for abdominal pain, nausea, vomiting, diarrhea, and constipation, Back: Negative for injury and pain, Skin: Negative for injury, rash, and discoloration, Neuro: Negative for headache, weakness, numbness, tingling, and seizure. 21:54 MS/extremity: Positive for decreased range of motion, pain, swelling, tenderness, of the right ankle. Exam: 21:54 Constitutional: This is a well developed, well nourished patient who is awake, alert, jr8 and in no acute distress. Cardiovascular: Regular rate and rhythm with a normal S1 and S2. No gallops, murmurs, or rubs. Normal PMI, no JVD. No pulse deficits. Respiratory: Lungs have equal breath sounds bilaterally, clear to auscultation and percussion. No rales, rhonchi or wheezes noted. No increased work of breathing, no retractions or nasal flaring. Skin: Warm, dry with normal turgor. Normal color with no rashes, no lesions, and no evidence of cellulitis. Neuro: Awake and alert, GCS 15, oriented to person, place, time, and situation. Cranial nerves II-XII grossly intact. Motor strength 5/5 in all extremities. Sensory grossly intact. Cerebellar exam normal. Normal gait. 21:54 Musculoskeletal/extremity: Extremities: grossly normal except: noted in the right ankle: pain, swelling, tenderness, right anterior talofibular region of ankle , ROM: intact in all extremities, full active range of motion, full passive range of motion, limited active range of motion due to pain, limited passive range of motion due to pain, Circulation is intact in all extremities. Sensation intact. Vital Signs: 20:46 BP 157 / 92; Pulse 80; Resp 17; Temp 97.8; Pulse Ox 100% ; Weight 86.18 kg; Height 5 ll1 ft. 8 in. (172.72 cm); Pain 4/10; 21:30 BP 142 / 89; Pulse 73; Resp 16; Pulse Ox 97% ; Pain 0/10; mt2 20:46 Body Mass Index 28.89 (86.18 kg, 172.72 cm) ll1 Procedures: 21:54 Splinting: Splint applied to right ankle using saba wrap, applied by nurse. Examined by jaime wy, post splint application: neurovascular intact, 2+ distal pulses palpable, brisk capillary refill noted, Patient tolerated well. Crutch training provided to patient and/or family. Return demonstration given. MDM: 21:29 Patient medically screened. jr8 21:54 Data reviewed: vital signs, nurses notes, radiologic studies, plain films, and as a jr8 result, I will discharge patient. Data interpreted: Pulse oximetry: on room air is 100 %. Interpretation: normal. Counseling: I had a detailed discussion with the patient and/or guardian regarding: the historical points, exam findings, and any diagnostic results supporting the discharge/admit diagnosis, radiology results, the need for outpatient follow up, a orthopedic surgeon, to return to the emergency department if symptoms worsen or persist or if there are any questions or concerns that arise at home. 12/26 20:59 Order name: Ankle Right 3 View XRAY; Complete Time: 22:43 lp1 12/26 22:36 Order name: Crutches; Complete Time: 22:40 mt2 Administered Medications: No medications were administered Disposition: 12/27 06:12 Co-signature as Attending Physician, Eliot Nesbitt MD. 7 Disposition: 12/27/19 21:58 Discharged to Home. Impression: Sprain of ankle. - Condition is Stable. - Discharge Instructions: Ankle Sprain. - Medication Reconciliation Form, Thank You Letter, Antibiotic Education, Prescription Opioid Use form. - Follow up: Vinod Cleveland MD; When: 7 - 10 days; Reason: Recheck today's complaints, Continuance of care, Re-evaluation by your physician. - Problem is new. - Symptoms have improved. Signatures: Dispatcher [employer] EDMS Cole Christian PA PA jr8 Elvira Nguyen, RN RN 1 Eliot Nesbitt MD MD 7 Chiquita Zhou RN RN mt2 Corrections: (The following items were deleted from the chart) 12/26 22:40 21:58 12/27/2019 21:58 Discharged to Home. Impression: Sprain of ankle. Condition is mt2 Stable. Forms are Medication Reconciliation Form, Thank You Letter, Antibiotic Education, Prescription Opioid Use. Follow up: Dr. Vinod Cleveland; When: 7 - 10 days; Reason: Recheck today's complaints, Continuance of care, Re-evaluation by your physician. Problem is new. Symptoms have improved. jr8
--- NOTE | 2019-12-27 21:59 | ER ---
Nurse's Notes [facility] Name: Andreina Nguyen Age: 64 yrs Sex: Female : 1955 Arrival Date: 12/27/2019 Time: 20:31 Bed 19 Private MD: Diagnosis: Sprain of ankle Presentation: 12/26 20:46 Chief complaint: Patient states: Rolled right ankle at 1430 today, misjudged a step ll1 while cleaning a house today. Slight abrasion left knee. Coronavirus screen: Client denies travel out of the [place] in the last 14 days. At this time, the client does not indicate any symptoms associated with coronavirus-19. Ebola Screen: Patient denies travel to an Ebola-affected area in the 21 days before illness onset. Initial Sepsis Screen: Does the patient meet any 2 criteria? No. Patient's initial sepsis screen is negative. Risk Assessment: Do you want to hurt yourself or someone else? Patient reports no desire to harm self or others. Onset of symptoms was December 27, 2019. 20:46 Method Of Arrival: Wheelchair ll1 20:46 Acuity: ANU 4 ll1 21:30 Initial Sepsis Screen: Does the patient have a suspected source of infection? No. mt2 Patient's initial sepsis screen is negative. Historical: - Allergies: 20:49 Doxycycline; ll1 20:49 Sulfa (Sulfonamide Antibiotics); ll1 - PSHx: 20:49 Incision and drainage-leg; ll1 - Immunization history:: Flu vaccine is up to date. - Social history:: Smoking status: Patient denies any tobacco usage or history of. Patient/guardian denies using alcohol, street drugs. Screenin:30 Abuse screen: Denies threats or abuse. Nutritional screening: No deficits noted. mt2 Tuberculosis screening: No symptoms or risk factors identified. Fall Risk None identified. Assessment: 21:30 Reassessment: Patient and/or family updated on plan of care and expected duration. Pain mt2 level reassessed. Patient is alert, oriented x 3, equal unlabored respirations, skin warm/dry/pink. Patient denies pain at this time. General: Appears comfortable, Behavior is cooperative. Pain: Denies pain. Musculoskeletal: Reports pain in right foot. Vital Signs: 20:46 BP 157 / 92; Pulse 80; Resp 17; Temp 97.8; Pulse Ox 100% ; Weight 86.18 kg; Height 5 ll1 ft. 8 in. (172.72 cm); Pain 4/10; 21:30 BP 142 / 89; Pulse 73; Resp 16; Pulse Ox 97% ; Pain 0/10; mt2 20:46 Body Mass Index 28.89 (86.18 kg, 172.72 cm) ll1 ED Course: 20:31 Patient arrived in ED. bp1 20:48 Triage completed. ll1 20:49 Arm band placed on Patient notified of wait time. ll1 21:29 Cole Christian PA is PHCP. jr8 21:29 Eliot Nesbitt MD is Attending Physician. jr8 21:30 Bed in low position. Call light in reach. Side rails up X 1. mt2 21:30 No provider procedures requiring assistance completed. Patient did not have IV access mt2 during this emergency room visit. 21:36 Ankle Right 3 View XRAY In Process Unspecified. EDMS 21:58 Vinod Cleveland MD is Referral Physician. jr8 22:36 Chiquita Zhou RN is Primary Nurse. mt2 Administered Medications: No medications were administered Outcome: 21:58 Discharge ordered by . jr8 22:40 Discharged to home via wheelchair, with crutches. mt2 22:40 Condition: good 22:40 Discharge instructions given to patient, Instructed on discharge instructions, follow up and referral plans. medication usage, crutch walking, Demonstrated understanding of instructions, follow-up care, medications, crutch walking. 22:40 Patient left the ED. mt2 Signatures: Dispatcher [employer] EDMS Cole Christian PA PA jr8 Elvira Nguyen, RN RN ll1 Darshana Hernandez Marlene, VARINDER RN mt2 Corrections: (The following items were deleted from the chart) 21:21 20:46 Acuity: ANU 3 ll1 ll1
--- NOTE | 2019-12-27 22:26 | RAD REPORT ---
EXAM DESCRIPTION: RAD - Ankle Right 3 View - 12/27/2019 9:36 pm CLINICAL HISTORY: Swelling;Pain COMPARISON: No comparisons FINDINGS: No acute fracture or dislocation is noted.
[2019-12-27 23:02] VITALS: TEMP 97.8
[2019-12-27 23:03] VITALS: BP 142/89; O2SAT 97
== END 2019-12-27 22:40 | disposition home or self-care (01) ==
LOC: ER 20:24
DX: S93.401A Sprain of unspecified ligament of right ankle, initial encounter (principal); W10.1XXA Fall (on)(from) sidewalk curb, initial encounter; Y93.01 Activity, walking, marching and hiking; Y92.89 Other specified places as the place of occurrence of the external cause; Z88.1 Allergy status to other antibiotic agents; Z88.2 Allergy status to sulfonamides
CPT/HCPCS: 99283

== ENCOUNTER 2021-06-05 11:30 | Day surgery (SDC) | payer OTHER, BC ==
[2021-06-04 10:28] LABS: Absolute Lymphocytes (CBC) 1.8 K/uL (0.7-4.9); Hematocrit 38.9 % (36.0-45.0); Lymphocytes % 29.6 % (15.3-44.8); MPV 7.8 fL (7.6-11.3); RBC Red Blood Cell Count 4.18 M/uL (3.86-4.86)
[2021-06-04 10:31] LABS: Protime INR 1.13
[2021-06-04 10:40] LABS: BUN Blood Urea Nitrogen 12 mg/dL (7-18); Bicarbonate 30 mmol/L (21-32); Glucose Level 80 mg/dL (74-106); Potassium 4.4 mmol/L (3.5-5.1); Sodium Level 141 mmol/L (136-145)
--- NOTE | 2021-06-04 11:05 | RAD REPORT ---
EXAM DESCRIPTION: RAD - Chest Pa And Lat (2 Views) - 06/04/2021 10:29 am CLINICAL HISTORY: pre op pending heart catheterization, hypertension history COMPARISON: Portable 04/10/2019 TECHNIQUE: Frontal and lateral views of the chest were obtained. FINDINGS: The lungs are clear. Interstitial pattern matches comparison. No hilar mass or lymphadeno melvin seen. Heart size is normal and central vasculature is within normal limits. No pleural effusio n or pneumothorax seen. No acute bony finding noted. No aortic abnormality. No significant change from comparison study. IMPRESSION: No acute cardiopulmonary process.
[2021-06-05] MEDS ORDERED: NA CHLORIDE 0.9% 500 ML ONE ×2 (11:45→13:59)
[2021-06-05 12:18] VITALS: TEMP 97.3
[2021-06-05] MEDS ORDERED: HEPA 1000U/500MLS 0 UNIT/0 ML BAG IV ONE (13:08)
[2021-06-05] MEDS ORDERED: LIDOCAINE 1% 20 ML MDV ONE (13:10)
[2021-06-05] MEDS ORDERED: VERAPAMIL HCL 10 MG/4 ML VIAL IV ONE (13:11)
[2021-06-05] MEDS ORDERED: NITROGLYCERIN 100 MCG/ML SYR (for cath lab use only) IV ONE (13:11)
[2021-06-05] MEDS ORDERED: ATROPINE SULF 1 MG/10 ML SYR IV ONE (13:11)
[2021-06-05] MEDS ORDERED: HEPARIN 5000 UNIT/ML 1 ML VIAL ONE (13:59)
[2021-06-05] MEDS ORDERED: MIDAZOLAM HCL 2 MG/2 ML INJ ONE (14:11)
[2021-06-05] MEDS ORDERED: FENTANYL CITR 100 MCG/2 ML ONE (14:11)
[2021-06-05 17:04] VITALS: BP 134/74; O2SAT 99
--- NOTE | 2021-06-06 01:27 | OP ---
Date of Procedure: 06/05/2021 Surgeon: SRAVANI MENDIETA Procedure Performed: 1.Selective coronary angiogram. 2.Left heart catheterization. Access: Right radial artery 6-Malian closed with TR band. Indication: Abnormal stress test. Complications: None. Bleeding: Less than 10 mL. Description Of Procedure: After risks, benefits, and alternatives were explained, patient agreed to procedure and signed informed consent. The patient was brought into the cardiac catheterization [facility], prepped and draped in usual sterile fashion. The access right radial artery using pediatric micropuncture kit and placed 6-Malian slender sheath and then I took 5-Malian [place] 4.0 catheter to t he aortic root, and then over J-wire, engaged left main, right coronary artery and took standard views and the cathet er was pushed over the wire across aortic valve into the LV. LVEDP was measured and pullback did not record any gradient. Then, the catheter was removed. Sheath was removed and placed TR band with good hemostasis. Findings: 1.Left main is normal. 2.Left anterior descending normal, normal diagonal branches. 3.Left circumflex is normal. 4.RCA normal with being dominant circulation. 5.LVEDP normal at 8 mmHg. Conclusion: 1.Normal coronary arteries. 2.Normal left ventricular end diastolic pressure. Plan: Risk factor modification. SR/MODL Voice ID: [id number] Report ID: [id number]
== END 2021-06-05 17:00 | disposition home or self-care (01) ==
LOC: CCL 11:30
PROVIDERS: ATTEND Internal Medicine
DX: R94.39 Abnormal result of other cardiovascular function study (principal); R07.9 Chest pain, unspecified; R06.02 Shortness of breath; I10 Essential (primary) hypertension; Z88.2 Allergy status to sulfonamides; Z88.3 Allergy status to other anti-infective agents; Z88.6 Allergy status to analgesic agent; Z20.822 Contact with and (suspected) exposure to COVID-19
CPT/HCPCS: 85025; 80048; 36415; 85610; 85730; 71046; 93458; U0003; C1893; J1644; J7040 ×2; J2250; J3010

== ENCOUNTER 2022-05-09 22:25 | Emergency (ER) | payer OTHER, BC ==
--- OUTSIDE RECORDS SUMMARY | 2022-05-09 22:31 | XMS REPORT | Continuity of Care Document ---
:1955 Author Organization [facility] t Address [address] [place] [address] Care Team Providers Name Role Phone Kulwant Will MD Primary Care Physician MONIQUE DAVIS Attending Clinician Unavailable ROBERTO CARLOS OLSEN Attending Clinician Unavailable Loc GAYTAN, Greta Guadarrama Attending Clinician Monique Davis MD Attending Clinician Janice Dunaway Attending Clinician Unavailable Payers Payer Name Policy Type Policy Number Effective Date Expiration Date S ource MEDICARE PART A \T\ B [id number] - MEDICARE OUT OF STATE BCBS - [id number] PPO - [facility] CHOICE/CHOICE [id number] PLUS/OPTIONS [facility] Problems Condition Condition Condition Status Onset Resolution Last Treating Co mments Source Name Details Category Date Date Treatment Clinician Date Therapeuti Therapeuti Disease Active [facility] c drug c drug 9-17 College monitoring monitoring 00:00: of 00 Medicin e Osteopenia Osteopenia Disease Active [facility] 3-15 College 00:00: of 00 Medicin e Polyarthri Polyarthri Disease Active 2015-05 [facility] tis tis 2- College 00:00: of 00 Medicin e Hypergamma Hypergamma Disease Active 2015-05 [facility] globulinem globulinem 06-28 Co llege ia ia 00:00: of 00 Medicin e Long-term Long-term Disease Active 2015-05 [place] fel[facility] use of use of 2-19 College Plaquenil Plaquenil 00:00: of 00 Medicin e Long-term Long-term Disease Active 2015-05 [place] [facility] use of use of 2-19 College Plaquenil Plaquenil 00:00: of 00 Medicin e Polyarthra Polyarthra Disease Active [facility] lgia lgia 6-02 [place] 00:00: of 00 Medicin e Skin rash Skin rash Disease Active 2014-05 [place] felicia 0-16 College 00:00: of 00 Medicin e Periodic Periodic Disease Active 2014-05 [place] sialadenos sialadenos 0-16 Co llege is is 00:00: of 00 Medicin e Primary Primary Disease Active 2014-05 [facility] Sjogren's Sjogren's 0-16 [facility] syndrome syndrome 00:00: of (HCCode) (HCCode) 00 Medici n e Allergies, Adverse Reactions, Alerts Allergy Allergy Status Severity Reaction(s) Onset Inactive Treating Comm ents Source Name Type Date Date Clinician Sulfamet Propensi Active Other (See unknown M ethodi hoxazole ty to Comments) 07-08 [facility] adverse 00:00: Hospita oprim reaction 00 l s to drug Doxycycl Propensi Active Other (See unknown M ethodi ine ty to Comments) 07-08 adverse 00:00: Hospita reaction 00 l s to drug Doxycycl Propensi Active Rash 2014-05 [facility] ine ty to 0-16 [place] adverse 00:00: of reaction 00 Medicin s to e drug Bactrim Propensi Active Hives 2014-05 [facility] Ds ty to 0-16 [place] adverse 00:00: of reaction 00 Medicin s to e drug Social History Social Habit Start Date Stop Date Quantity Comments Source Exposure to Not sure [facility] Bennett hines of SARS-CoV-2 Medicine (event) Alcohol Comment not in 20 years [facility] or [place] of Medicine Alcohol intake 2020-08-05 2020-08-05 Current [facility] Col lege of 00:00:00 00:00:00 non-drinker of Medicine alcohol (finding) Tobacco use and 2020-08-05 2020-08-05 Never used [facility] Co llege of exposure 00:00:00 00:00:00 Medicine Sex [birth year] [employer] 00:00:00 00:00:00 Hospital Smoking Status Start Date Stop Date Source Tobacco smoking consumption unknown [facility] Never smoker [facility] o f Medicine Medications Ordered Filled Start Stop Current Ordering Indication Dosage Frequency Signature Comments Components Source Medication Medication Date Date Medication? Clinician (SIG) Name Name irbesartan Yes 150mg QD Take 150 Me th[facility] (AVAPRO) 1-[address] 150 MG 00:00: mouth Hospita tablet 00 daily. l hydrOXYchlo Yes Take 1 tab [facility] roQUINE 9-[address] (PLAQUENIL) 00:00: daily Hospi ta 200 mg 00 l tablet pilocarpine Yes TAKE UP TO [facility] (SALAGEN) 5 6-[address] MG tablet 00:00: DAILY BY Hosp megan 00 MOUTH l methylPREDN 2020- No [id number] [facility] ISolone 08-05 College acetate 14:45: 15:07 of (DEPO-MEDRO 00 :00 Medicin L) 40 MG/ML e 40 mg, lidocaine 1% (10 mg/mL) 2 mL methylPREDN 2020- No [id number] Intra-Burs [facility] ISolone 08-05 al, ONCE, Colleg e acetate 14:45: 15:07 1 dose, of (DEPO-MEDRO 00 :00 Mon Medicin L) 40 MG/ML 08/05/20 at e 40 mg, 0945
Le lidocaine ft 1% (10 shoulder<b mg/mL) 2 mL r> PILOCARPINE Yes [id number] Take upto [facility] HCL, ORAL, 08-05 3/day College 5 MG TABS 00:00: of 00 Medicin e hydroxychlo Yes [id number] TAKE 1 [facility] roquine 1-15 TABLET BY [place] (PLAQUINIL) 00:00: MOUTH of 200 MG 00 TWICE A Medicin tablet DAY e Magnesium 2020-0 Yes Take by [facility] 500 MG CAPS 02-04 mouth. Colleg e 14:44: of 02 Medicin e Magnesium 2020-0 Yes Take by [facility] 500 MG CAPS - mouth. Colleg e 14:44: of 02 Medicin e fluticasone 2020-0 Yes 1{spray 1 [place] by [facility] (FLONASE) 02-04 } Each [place] 50 MCG/ACT 14:40: Nostril of nasal spray 20 route as Medi stephon needed. e Vitamin D, 2020-0 Yes Take by [facility] Cholecalcif 02-04 mouth [place] royce, 1000 14:40: daily. of UNITS TABS 20 Medicin e Fexofenadin 2020-0 Yes Take by [place] felicia e HCl - mouth. [place] (CHANCE 14:40: of OR) 20 Medicin e docusate 2020-0 Yes 50mg Take 50 mg [place] [facility]icia sodium - by mouth [place] (COLACE) 50 14:40: two times o f MG capsule 20 daily. Medicin e Wheat 2020-0 Yes Take by [facility] Dextrin 02-04 mouth. [place] (BENEFIBER 14:40: of OR) 20 Medicin e fluticasone 2020-0 Yes 1{spray 1 [place] by [facility] (FLONASE) 02-04 } Each [place] 50 MCG/ACT 14:40: Nostril of nasal spray 20 route as Medi stephon needed. e Vitamin D, 2020-0 Yes Take by [facility] Cholecalcif 02-04 mouth [place] royce, 1000 14:40: daily. of UNITS TABS 20 Medicin e Fexofenadin 2020-0 Yes Take by [place] felicia e HCl - mouth. [place] (CHANCE 14:40: of OR) 20 Medicin e docusate 2020-0 Yes 50mg Take 50 mg [place] felicia sodium 02-04 by mouth [place] (COLACE) 50 14:40: two times o f MG capsule 20 daily. Medicin e Wheat 2020-0 Yes Take by [facility] Dextrin -28 mouth. [place] (BENEFIBER 14:40: of OR) 20 Medicin e alendronate 2020-0 Yes 70mg Take 1 Tab [facility] (FOSAMAX) 02-04 by mouth Colleg e 70 MG 00:00: every 7 of tablet 00 days. Medicin e PILOCARPINE 2020-0 Yes [id number] Take upto [facility] HCL, ORAL, 02-04 3/day College 5 MG TABS 00:00: of 00 Medicin e alendronate 2020-0 Yes 70mg Take 1 Tab [facility] (FOSAMAX) 02-04 by mouth Colleg e 70 MG 00:00: every 7 of tablet 00 days. Medicin e PILOCARPINE 2019-0 2020- No [id number] Take upto [facility] HCL, ORAL, 02-04- 3/day College 5 MG TABS 00:00: 00:00 of 00 :00 Medicin e PILOCARPINE 2019-0 2019- No [id number] TAKE 1 [facility] HCL, ORAL, 802-04 TABLET Colleg e 5 MG TABS 00:00: 00:00 EVERY of 00 :00 EVENING. Medicin e hydroxychlo 2019- Yes [id number] TAKE 1 [facility] roquine 7-20 TABLET BY [place] (PLAQUINIL) 00:00: MOUTH of 200 MG 00 TWICE A Medicin tablet DAY e alendronate 2019-2019- No 70mg Take 1 Tab [facility] (FOSAMAX) 6-11 02-04 by mouth Colle ge 70 MG 00:00: 00:00 every 7 of tablet 00 :00 days. Medicin e fluticasone 2018-0 Yes 1{spray 1 [place] by [facility] (FLONASE) 01-23 } Each [place] 50 MCG/ACT 15:09: Nostril of nasal spray 57 route as Medi stephon needed. e Vitamin D, 2018-0 Yes Take by [facility] Cholecalcif -16 mouth [place] royce, 1000 15:09: daily. of UNITS TABS 57 Medicin e Fexofenadin 2018-0 Yes Take by [place] felicia e HCl -16 mouth. [place] (CHANCE 15:09: of OR) 57 Medicin e docusate 2018-0 Yes 50mg Take 50 mg [place] felicia sodium -16 by mouth [place] (COLACE) 50 15:09: two times o f MG capsule 57 daily. Medicin e Wheat 2018-0 Yes Take by [facility] Dextrin 9-16 mouth. [place] (BENEFIBER 15:09: of OR) 57 Medicin e hydroxychlo 2019-0 Yes [id number] TAKE 1 [facility] roquine 9-09 TABLET BY [place] (PLAQUINIL) 00:00: MOUTH of 200 MG 00 TWICE A Medicin tablet DAY e PILOCARPINE 2018-0 Yes [id number] TAKE 1 [facility] HCL, ORAL, 9- TABLET College 5 MG TABS 00:00: EVERY of 00 EVENING. Medicin e alendronate 2019-0 Yes 70mg TAKE 1 TAB [facility] (FOSAMAX) 8-19 BY MOUTH Colleg e 70 MG 00:00: EVERY 7 of tablet 00 DAYS. Medicin e PILOCARPINE 2019-0 Yes [id number] TAKE 1 [facility] HCL, ORAL, 3-18 TABLET in [facility] e[facility] 5 MG TABS 00:00: PM of 00 Medicin e PILOCARPINE 2018- 2020- No [id number] TAKE 1 [facility] HCL, ORAL, 3-18 09-28 TABLET in Col lege 5 MG TABS 00:00: 00:00 PM of 00 :00 Medicin e irbesartan 2018-0 Yes 75mg Take 75 mg [facility] (AVAPRO) 75 8-23 by mouth [facility] MG tablet 00:00: nightly. of 00 Medicin e irbesartan 2018-0 Yes 75mg Take 75 mg [facility] (AVAPRO) 75 8-23 by mouth [facility] MG tablet 00:00: nightly. of 00 Medicin e irbesartan 2018-0 Yes 75mg Take 75 mg [facility] (AVAPRO) 75 8-23 by mouth [facility] MG tablet 00:00: nightly. of 00 Medicin e valacyclovi 2015-0 Yes [facility] (VALTREX) 09-12 [place] 1 GM tablet 00:00: of 00 Medicin e valacyclovi 2016-0 Yes [facility] r (VALTREX) 09-12 [place] 1 GM tablet 00:00: of 00 Medicin e valacyclovi 2015-0 Yes [facility] (VALTREX) 09-12 [place] 1 GM tablet 00:00: of 00 Medicin e Immunizations Ordered Immunization Filled Immunization Date Status Commen ts Source Name Name Influenza Quad-PF 2020-02-05 Completed [facility] 00:00:00 of Medicine Influenza Quad-PF 2020-02-05 Completed [facility] 00:00:00 of Medicine Influenza Quad-PF 2019-04-11 Completed [facility] 00:00:00 of Medicine Influenza Quad-PF 2019-04-11 Completed [facility] 00:00:00 of Medicine Vital Signs Vital Name Observation Time Observation Value Comments Source Systolic blood 2020-08-05 14:18:00 132 mm[Hg] [facility] pressure Medicine Diastolic blood 2020-08-05 14:18:00 72 mm[Hg] [facility] pressure Medicine Heart rate 2020-08-05 14:18:00 92 /min [facility] Body temperature 2020-08-05 14:18:00 36.22 [facility] Respiratory rate 2020-08-05 14:18:00 18 /min [facility] Body height 2020-08-05 14:18:00 [facility]7 [facility] Body weight 2020-08-05 14:18:00 82.555 [facility] BMI 2020-08-05 14:18:00 27.67 kg/m2 [facility] Oxygen saturation in 2020-08-05 14:18:00 96 /min [facility] of Arterial blood by Medicine Pulse oximetry Systolic blood 2020-02-05 14:40:00 128 mm[Hg] [facility] pressure Medicine Diastolic blood 2020-02-05 14:40:00 79 mm[Hg] [facility] Medicine Heart rate 2020-02-05 14:40:00 77 /min [facility] Body temperature 2020-02-05 14:40:00 36.11 [facility] Respiratory rate 2020-02-05 14:40:00 16 /min [facility] Body height 2020-02-05 14:40:00 175.3 cm [facility] Body weight 2020-02-05 14:40:00 83.008 [facility] BMI 2020-02-05 14:40:00 27.02 [facility]m2 [facility] Oxygen saturation in 2020-02-05 14:40:00 99 /min [facility] College of Arterial blood by Medicine Pulse oximetry BMI 2019-01-23 15:09:00 28.00 kg/m2 [facility] O[facility] saturation in 2019-01-23 15:09:00 100 /min [facility] College of Arterial blood by Medicine Pulse oximetry Systolic blood 2019-01-23 15:09:00 155 mm[Hg] [facility] of pressure Medicine Diastolic blood 2019-01-23 15:09:00 88 mm[Hg] [facility] Heart rate 2019-01-23 15:09:00 81 /min [facility] Body temperature 2019-01-23 15:09:00 36.83 [facility] Respiratory rate 2019-01-23 15:09:00 17 /min [facility] Body height 2019-01-23 15:09:00 175.3 cm [facility] Body weight 2019-01-23 15:09:00 86.002 kg [facility] BMI 2019-01-23 15:09:00 28.00 kg/m2 [facility] Oxygen saturation in 2019-01-23 15:09:00 100 /min [facility] Arterial blood by [facility] Pulse oximetry Systolic blood 2019-01-23 15:09:00 155 mm[Hg] [facility] Diastolic blood 2019-01-23 15:09:00 88 mm[Hg] [facility] Heart rate 2019-01-23 15:09:00 81 /min [facility] Body temperature 2019-01-23 15:09:00 36.83 [facility] Respiratory rate 2019-01-23 15:09:00 17 /min [facility] Body height 2019-01-23 15:09:00 175.3 cm [facility] Body weight 2019-01-23 15:09:00 86.002 kg [facility] Procedures Procedure Date / Time Performed Performing Clinician Sourc e XR HAND 3+ VW LEFT 2021-07-08 17:05:08 Greta Monterroso [facility] Planned Activity Planned Date Details Comments Source Future Scheduled 2022-04-21 COVID-19 VACCINE (#1) [facility] 07:29:48 [code = COVID-19 Hospital VACCINE (#1)] Future Scheduled 2022-04-21 Hepatitis C screening [facility] 07:29:48 (procedure) [code = Hospital 604566185] Future Scheduled 2022-04-21 BREAST CANCER [facility] Test 07:29:48 SCREENING [code = Hospital BREAST CANCER SCREENING] Future Scheduled 2022-04-21 COLONOSCOPY SCREENING [facility] 07:29:48 [code = COLONOSCOPY Hospital SCREENING] Future Scheduled 2022-04-21 SHINGLES VACCINES (1 [facility] Test 07:29:48 of 2) [code = SHINGLES Hospi [place] VACCINES (1 of 2)] Future Scheduled 2022-04-21 65+ PNEUMOCOCCAL [facility] Test 07:29:48 VACCINE (1 - PCV) Hospital [code = 65+ PNEUMOCOCCAL VACCINE (1 - PCV)] Future Scheduled 2022-04-21 INFLUENZA VACCINE Method [facility] Test 07:29:48 [code = INFLUENZA Hospital VACCINE] Future Scheduled TETANUS SHOT (ADULT) [place] [facility] Test [code = TETANUS SHOT of Medi cine (ADULT)] Future Scheduled BMI FOLLOW UP PLAN [employer] Test [code = BMI FOLLOW UP of Med icine PLAN] Future Scheduled HEPATITIS C SCREENING [employer] Test [code = HEPATITIS C of Medic ine SCREENING] Future Scheduled HIV SCREENING [code = [employer] Test HIV SCREENING] of Medicine Future Scheduled ZOSTER VACCINE (1 of [place] fel[facility] College Test 2) [code = ZOSTER of Medicin e VACCINE (1 of 2)] Future Scheduled MAMMOGRAM ANNUAL [code [facility] College Test = MAMMOGRAM ANNUAL] of Medic ine Future Scheduled CERVICAL CANCER [facility] C ollekassidy Test SCREENING 3 YEAR of Medicine FOLLOW UP [code = CERVICAL CANCER SCREENING 3 YEAR FOLLOW UP] Future Scheduled COMPREHENSIVE Ordered: [facility] Col lege Test METABOLIC PANEL [code 08/05/2020 of Med icine = 14809-8] Future Scheduled CBC W/AUTO DIFF WITH Ordered: [place] [facility] College Test PLATELETS [code = 08/05/2020 of Medicin e 18515-5] Future Scheduled SEDIMENTATION RATE Ordered: [employer] Test MODIFIED ALICIA 08/05/2020 of Medic ine [code = 4537-7] Future Scheduled C-REACTIVE PROTEIN Ordered: [employer] Test [code = 1988-5] 08/05/2020 of Medicine Future Scheduled ABO GROUPING [code = Ordered: [place] [facility] College Test NOCPT] 08/05/2020 of Medicine Future Scheduled Screening for [facility] Col lege Test malignant neoplasm of of Med icine colon (procedure) [code = 723249671] Future Scheduled TETANUS SHOT (ADULT) [place] [facility] Test [code = TETANUS SHOT of Medi cine (ADULT)] Future Scheduled COVID-19 Vaccine (1) [place] [facility] Test [code = COVID-19 of Medicine Vaccine (1)] Future Scheduled BMI FOLLOW UP PLAN [facility] r College Test [code = BMI FOLLOW UP of Med icine PLAN] Future Scheduled Hepatitis C screening [facility] [place] Test (procedure) [code = of Medic ine 753825403] Future Scheduled ZOSTER VACCINE (1 of [facility] College Test 2) [code = ZOSTER of Medicin e VACCINE (1 of 2)] Future Scheduled MEDICARE IPPE (WELCOME B [facility] College Test TO MEDICARE) [code = of Medi cine MEDICARE IPPE (WELCOME TO MEDICARE)] Future Scheduled FALL SCREEN [code = [facility] Test FALL SCREEN] of Medicine Future Scheduled PNEUMOVAX >=65 [facility] Co llege Test (PPSV23) [code = of Medicine PNEUMOVAX >=65 (PPSV23)] Future Scheduled Screening for [facility] Col lege Test malignant neoplasm of of Med icine breast (procedure) [code = 171478930] Future Scheduled CBC W/AUTO DIFF WITH Ordered: [facility] Test PLATELETS [code = 01/23/2019 of Medicin e 08326-2] Future Scheduled SEDIMENTATION RATE Ordered: [facility] Test MODIFIED WESTERGREN 01/23/2019 of Medic ine [code = 4537-7] Future Scheduled COMPREHENSIVE Ordered: [facility] Col lege Test METABOLIC PANEL [code 01/23/2019 of Med icine = 96822-9] Future Scheduled C-REACTIVE PROTEIN Ordered: [facility] Test [code = 1988-5] 01/23/2019 of Medicine Future Scheduled IMMUNOFIXATION + Ordered: [facility] Test PROTEIN 01/23/2019 of Medicine ELECTROPHORESIS - SERUM [code = 68278-4] Future Scheduled VITAMIN D 25 HYDROXY Ordered: [facility] Test [code = 1989-3] 01/23/2019 of Medicine Future Scheduled URINALYSIS, COMPLETE Ordered: [facility] Test W/REFLEX TO CULTURE 01/23/2019 of Medic ine [code = 55652-6] Future Scheduled RANDOM URINE Ordered: [facility] ege Test PROTEIN/CREATININE 01/23/2019 of Medici ne [code = 2890-2] Future Scheduled COLON CANCER [facility] Test SCREENING: COLONOSCOPY of Me dicine [code = COLON CANCER SCREENING: COLONOSCOPY] Future Scheduled MAMMOGRAM ANNUAL [code [facility] Test = MAMMOGRAM ANNUAL] of Medic ine Future Scheduled TETANUS SHOT (ADULT) [facility] Test [code = TETANUS SHOT of Medi cine (ADULT)] Future Scheduled BMI FOLLOW UP PLAN [place] [facility] Test [code = BMI FOLLOW UP of Med icine PLAN] Future Scheduled HEPATITIS C SCREENING [employer] Test [code = HEPATITIS C of Medic ine SCREENING] Future Scheduled HIV SCREENING [code = [employer] Test HIV SCREENING] of Medicine Future Scheduled CERVICAL CANCER [facility] C ollege Test SCREENING 3 YEAR of Medicine FOLLOW UP [code = CERVICAL CANCER SCREENING 3 YEAR FOLLOW UP] Future Scheduled FLU VACCINE > 6 MONTHS [facility] [employer] Test [code = FLU VACCINE > of Med icine 6 MONTHS] Future Scheduled COMPLEMENT C3 AND C4 Ordered: [facility] Test [code = NOCPT] 02/05/2020 of Medicine Future Scheduled IMMUNOFIXATION + Ordered: [facility] Test PROTEIN 02/05/2020 of Medicine ELECTROPHORESIS - SERUM [code = 29566-3] Future Scheduled VITAMIN D 25 HYDROXY Ordered: [facility] Test [code = 1989-3] 02/05/2020 of Medicine Future Scheduled COMPREHENSIVE Ordered: [facility] Col lege Test METABOLIC PANEL [code 02/05/2020 of Med icine = 97116-5] Future Scheduled CBC W/AUTO DIFF WITH Ordered: [facility] Test PLATELETS [code = 02/05/2020 of Medicin e 19510-3] Future Scheduled IGG [code = 2465-3] Ordered: [facility] or College Test 02/05/2020 of Medicine Future Scheduled COLON CANCER [facility] Test SCREENING: COLONOSCOPY of Me mcclain [code = COLON CANCER SCREENING: COLONOSCOPY] Encounters Start End Encounter Admission Attending Care Care Encounter Source Date/Time Date/Time Type Type Clinicians Facility Department ID 2021-11-11 2021-11-11 Outpatient CHRISTINA DAVIS [facility] [id number] [facility] 15:31:55 15:31:55 MONIQUE Guajardo e of Medicin e 2021-09-17 2021-09-17 Emergency E STRODER, JOANA BL [id number] 14:45:00 18:13:00 ROBERTO CARLOS 2021-07-08 2021-07-08 Office Loc 1.2.840.1 [id number] [place] 11:00:00 11:15:21 Visit Greta Guadarrama 49246.1.[address] 3.430.2.7 Hospit a .[id number] l .8 2021-07-08 2021-07-08 Outpatient LOC [facility] [id number] [address] [place] 00:00:00 00:00:00 GRETA [address] 2021-07-08 2021-07-08 Outpatient LOC [facility] [id number] [place] 00:00:00 00:00:[address] GRETA [address] 2021-07-01 2021-07-01 Travel 1.2.840.1 [id number] [id number] [facility]i 00:00:00 00:00:[address] 3.430.2.7 0.2.7.3.698 Ho spita .[id number] 084.8 l .8 2021-01-14 2021-01-14 Outpatient CHRISTINA DAVIS Rodriguez [id number] [facility] 12:45:57 13:36:39 MONIQUE Colleg e of Medicin e 2020-08-05 2020-08-05 Office CHRISTINA Davis [id number] [facility] 09:01:17 12:44:03 Visit Monique M AMBULATOR 350.1.13.21 College Y 0.2.7.2.686 of [id number] Medi stephon 370 e 2020-02-05 2020-02-05 Office CHRISTINA Davis [id number] [facility] 09:26:19 10:14:24 Visit Monique M AMBULATOR 350.1.13.21 College Y 0.2.7.2.686 of [id number] Medi stephon 370 e 2019-01-23 2019-01-23 Office CHRISTINA Davis [id number] [facility] 09:29:50 10:57:22 Visit Monique M AMBULATOR 350.1.13.21 College Y 0.2.7.2.686 of [id number] Medi stephon 370 e 2019-01-23 2019-01-23 Office CHRISTINA Davis [id number] 09:29:50 10:57:22 Visit Monique M AMBULATOR 350.1.13.21 Y 0.2.7.2.686 [id number] Results Test Description Test Time Test Comments Results Result Comments Source MRI LUMBAR WO 2019-04-21 CLINICAL INDICATION: 10:24:10 R20.8 Other disturbances of skin sensation, right leg doimwenzS39.5 Low back painMODALITY: 3[place] 3T MRI TECHNIQUE: Multiplanar multi sequence MRI [...] moderately severe hypertrophic degeneration with prominent ligamentum flavum.FINDINGS:COMP ARISON: 08/14/2017, lumbar MRIGeneral observations: There are five [...]
[2022-05-09] MEDS ORDERED: IBUPROFEN 400 MG TAB ONE (23:39)
[2022-05-09] MEDS ORDERED: HYDROCODONE/APAP 5/325 MG TAB ONE (23:40)
[2022-05-09] MEDS ORDERED: IBUPROFEN 200 MG TAB PO ONE (23:40)
--- NOTE | 2022-05-10 00:10 | ER ---
Nurse's Notes [facility] Name: Andreina Nguyen Age: 66 yrs Sex: Female : 1955 Arrival Date: 05/09/2022 Time: 22:29 Bed 16 Private MD: Diagnosis: Fall on same level from slipping, tripping and stumbling with subsequent striking against object;Sprain of ankle;Fracture of lower end of tibia;Bilateral distal fibular fractures Presentation: 05/09 23:03 Chief complaint: Patient states: "I think there was a dip in the driveway and I tw5 tripped. I felt like both of my ankles bend backward. I feel like the right one is worse than the left.". Coronavirus screen: Vaccine status: Patient reports receiving the 2nd dose of the covid vaccine. Moderna. Ebola Screen: Patient negative for fever greater than or equal to 101.5 degrees Fahrenheit, and additional compatible Ebola Virus Disease symptoms Patient denies exposure to infectious person. Patient denies travel to an Ebola-affected area in the 21 days before illness onset. Initial Sepsis Screen: Does the patient meet any 2 criteria? No. Patient's initial sepsis screen is negative. Does the patient have a suspected source of infection? No. Patient's initial sepsis screen is negative. Risk Assessment: Do you want to hurt yourself or someone else? Patient reports no desire to harm self or others. Onset of symptoms was May 09, 2022 at 22:00. 23:03 Method Of Arrival: Wheelchair tw5 23:03 Acuity: ANU 3 tw5 Triage Assessment: 23:04 General: Appears uncomfortable, Behavior is calm, cooperative, appropriate for age. tw5 Pain: Complains of pain in "Bilateral ankles" Pain currently is 10 out of 10 on a pain scale. Historical: - Allergies: 23:04 Doxycycline; tw5 23:04 Sulfa (Sulfonamide Antibiotics); tw5 - PMHx: 23:04 Arthritis; HTN; tw5 - PSHx: 23:04 None; tw5 - Immunization history:: Last tetanus immunization: < 10 years ago Flu vaccine is up to date. - Social history:: Smoking status: Patient denies any tobacco usage or history of. Screenin/01 00:[address] [facility] ED Fall Risk Assessment (Adult) History of falling in the last 3 months, aa9 including since admission Yes- single mechanical fall (1 pt) Confusion or Disorientation No (0 pts) Intoxicated or Sedated No (0 pts) Impaired Gait No (0 pts) Mobility Assist Device Used No (0 pt) Altered Elimination No (0 pt) Score/Fall Risk Level 3 or more points = High Risk Oriented to surroundings, Maintained a safe environment. Abuse screen: Denies threats or abuse. Denies injuries from another. Nutritional screening: No deficits noted. Tuberculosis screening: No symptoms or risk factors identified. Assessment: 00:27 General: Appears uncomfortable, Behavior is calm, cooperative, appropriate for age. aa9 Pain: Complains of pain in martir ankles Aggravated by increased activity, repositioning. Neuro: Level of Consciousness is awake, alert, obeys commands, Oriented to person, place, time, situation. Cardiovascular: Patient's skin is warm and dry. Respiratory: Airway is patent Respiratory effort is even, unlabored. GI: No signs and/or symptoms were reported involving the gastrointestinal system. : No signs and/or symptoms were reported regarding the genitourinary system. EENT: No signs and/or symptoms were reported regarding the EENT system. Derm: Skin is intact, is healthy with good turgor. Musculoskeletal: Swelling present in martir ankles Tenderness present in martir ankles. Vital Signs: 05/09 23:03 BP 119 / 72; Pulse 73; Resp 18; Temp 97.3; Pulse Ox 100% ; Weight 83.91 kg; Height 5 tw5 ft. 8 in. (172.72 cm); Pain 10/10; 23:03 Body Mass Index 28.13 (83.91 kg, 172.72 cm) tw5 ED Course: 22:29 Patient arrived in ED. jj6 23:04 Triage completed. tw5 23:04 Arm band placed on Patient placed in an exam room. tw5 23:24 Connie Sánchez FNP-C is [facility]. snw 23:24 Brian Santacruz MD is Attending Physician. snw 23:26 Zenaida Olson, VARINDER is Primary Nurse. aa9 05/10 00:07 Ankle Left 3 View XRAY In Process Unspecified. EDMS 00:07 Ankle Right 3 View XRAY In Process Unspecified. EDMS 00:29 Patient has correct armband on for positive identification. Bed in low position. Adult aa9 w/ patient. 00:29 No provider procedures requiring assistance completed. aa9 00:43 Orthoglass splint: Posterior short lleg splint applied on right leg. ds4 00:49 Patient did not have IV access during this emergency room visit. aa9 Administered Medications: 05/09 23:40 Drug: [place] (HYDROcodone-acetaminophen) 5 mg-325 mg 1 tabs Route: PO; aa9 05/10 00:19 Follow up: Response: No adverse reaction aa9 05/09 23:40 Drug: Motrin (ibuprofen) 600 mg Route: PO; aa9 05/10 00:19 Follow up: Response: No adverse reaction aa9 Medication: 00:29 VIS not applicable for this client. aa9 Outcome: 00:08 Discharge ordered by . spenser 00:48 Discharged to home via wheelchair, with family. aa9 00:48 Condition: stable 00:48 Discharge instructions given to patient, Instructed on discharge instructions, follow up and referral plans. medication usage, Demonstrated understanding of instructions, follow-up care, medications, Prescriptions given X 3. 00:49 Patient left the ED. aa9 Signatures: Dispatcher [employer] EDMS Connie Sánchez, FRONT END TECHNICIAN-C FRONT END TECHNICIAN-Csnw Yared Mcintyre ds4 Bárbara Lerner tw5 Varsha Sue6 Zenaida Olson, RN RN aa9
--- NOTE | 2022-05-10 00:10 | EDPHYS ---
Physician Documentation [facility] Name: Andreina Nguyen Age: 66 yrs Sex: Female : 1955 Arrival Date: 05/09/2022 Time: 22:29 Bed 16 Private MD: ED Physician Brian Santacruz HPI: 05/09 23:35 This 66 yrs old Black Female presents to ER via Wheelchair with complaints of Fall snw Injury. 23:35 Details of fall: The patient fell from an upright position, while walking. Onset: The snw symptoms/episode began/occurred suddenly, just prior to arrival. Associated injuries: The patient sustained left lateral malleolus, contusion, decreased range of motion, painful injury, right medial malleolus and right lateral malleolus, decreased range of motion, painful injury, swelling. Severity of symptoms: At their worst the symptoms were moderate, severe. The patient has not experienced similar symptoms in the past. The patient has not recently seen a physician. Historical: - Allergies: 23:04 Doxycycline; tw5 23:04 Sulfa (Sulfonamide Antibiotics); tw5 - PMHx: 23:04 Arthritis; HTN; tw5 - PSHx: 23:04 None; tw5 - Immunization history:: Last tetanus immunization: < 10 years ago Flu vaccine is up to date. - Social history:: Smoking status: Patient denies any tobacco usage or history of. ROS: 23:34 Constitutional: Negative for fever, chills, and weight loss, Eyes: Negative for injury, snw pain, redness, and discharge, ENT: Negative for injury, pain, and discharge, Neck: Negative for injury, pain, and swelling, Cardiovascular: Negative for chest pain, palpitations, and edema, Respiratory: Negative for shortness of breath, cough, wheezing, and pleuritic chest pain, Abdomen/GI: Negative for abdominal pain, nausea, vomiting, diarrhea, and constipation, Back: Negative for injury and pain, : Negative for injury, bleeding, discharge, and swelling, Skin: Negative for injury, rash, and discoloration, Neuro: Negative for headache, weakness, numbness, tingling, and seizure, Psych: Negative for depression, anxiety, suicide ideation, homicidal ideation, and hallucinations. 23:34 MS/extremity: Positive for injury or acute deformity, decreased range of motion, pain, swelling, tenderness, of the right medial malleolus and right lateral malleolus and left lateral malleolus. Exam: 23:33 Constitutional: This is a well developed, well nourished patient who is awake, alert, snw and in no acute distress. Head/Face: Normocephalic, atraumatic. Eyes: Pupils equal round and reactive to light, extra-ocular motions intact. Lids and lashes normal. Conjunctiva and sclera are non-icteric and not injected. Cornea within normal limits. Periorbital areas with no swelling, redness, or edema. ENT: Nares patent. No nasal discharge, no septal abnormalities noted. Tympanic membranes are normal and external auditory canals are clear. Oropharynx with no redness, swelling, or masses, exudates, or evidence of obstruction, uvula midline. Mucous membranes moist. Neck: Trachea midline, no thyromegaly or masses palpated, and no cervical lymphadenopathy. Supple, full range of motion without nuchal rigidity, or vertebral point tenderness. No Meningismus. Chest/axilla: Normal chest wall appearance and motion. Nontender with no deformity. No lesions are appreciated. Cardiovascular: Regular rate and rhythm with a normal S1 and S2. No gallops, murmurs, or rubs. Normal PMI, no JVD. No pulse deficits. Respiratory: Lungs have equal breath sounds bilaterally, clear to auscultation and percussion. No rales, rhonchi or wheezes noted. No increased work of breathing, no retractions or nasal flaring. Abdomen/GI: Soft, non-tender, with normal bowel sounds. No distension or tympany. No guarding or rebound. No evidence of tenderness throughout. Back: No spinal tenderness. No costovertebral tenderness. Full range of motion. Skin: Warm, dry with normal turgor. Normal color with no rashes, no lesions, and no evidence of cellulitis. Neuro: Awake and alert, GCS 15, oriented to person, place, time, and situation. Cranial nerves II-XII grossly intact. Motor strength 5/5 in all extremities. Sensory grossly intact. Cerebellar exam normal. Normal gait. Psych: Awake, alert, with orientation to person, place and time. Behavior, mood, and affect are within normal limits. 23:33 Musculoskeletal/extremity: Extremities: grossly normal except: noted in the left lateral malleolus: noted in the right lateral malleolus and right medial malleolus: decreased ROM, swelling, tenderness, ROM: limited active range of motion due to pain, limited passive range of motion due to pain, Circulation is intact in all extremities. Weight bearing: is unable to bear weight. Vital Signs: 23:03 BP 119 / 72; Pulse 73; Resp 18; Temp 97.3; Pulse Ox 100% ; Weight 83.91 kg; Height 5 tw5 ft. 8 in. (172.72 cm); Pain 10/10; 23:03 Body Mass Index 28.13 (83.91 kg, 172.72 cm) tw5 MDM: 23:[address] [facility] 23:43 Differential diagnosis: contusion, fracture, sprain, strain. Data reviewed: vital snw signs, nurses notes. Data interpreted: Pulse oximetry: on room air is 100 %. Interpretation: normal. Counseling: I had a detailed discussion with the patient and/or guardian regarding: the historical points, exam findings, and any diagnostic results supporting the discharge/admit diagnosis, radiology results, the need for outpatient follow up, to return to the emergency department if symptoms worsen or persist or if there are any questions or concerns that arise at home. Special discussion: Based on the history and exam findings, there is no indication for further emergent testing or inpatient evaluation. I discussed with the patient/guardian the need to see the orthopedic surgeon for further evaluation of the symptoms. 23:55 Test interpretation: by ED physician or midlevel provider: ECG, plain radiologic snw studies, left and right fibular fx, right tibial fx, avulsion type injury with ankle mortis preserved.. 05/09 23:33 Order name: Ankle Left 3 View XRAY snw 05/09 23:33 Order name: Ankle Right 3 View XRAY snw 05/09 23:55 Order name: Walking boot: left; Complete Time: 00:43 snw 05/09 23:55 Order name: Posterior Orthoglass Ankle Splint; Complete Time: 00:43 snw Administered Medications: 23:40 Drug: [place] (HYDROcodone-acetaminophen) 5 mg-325 mg 1 tabs Route: PO; aa9 05/10 00:19 Follow up: Response: No adverse reaction aa9 05/09 23:40 Drug: Motrin (ibuprofen) 600 mg Route: PO; aa9 05/10 00:19 Follow up: Response: No adverse reaction aa9 Disposition Summary: 05/10/22 00:08 Discharge Ordered Location: Home snw Condition: Stable snw Diagnosis - Fall on same level from slipping, tripping and stumbling with subsequent striking snw against object - Sprain of ankle snw - Fracture of lower end of tibia snw - Bilateral distal fibular fractures snw Followup: snw - With: Emergency Department - When: As needed - Reason: Worsening of condition Followup: snw - With: Private Physician - When: 2 - 3 days - Reason: Recheck today's complaints, Continuance of care, Re-evaluation by your physician Discharge Instructions: - Discharge Summary Sheet snw - Ankle Sprain snw - Fall Prevention in the Home, Adult snw - RICE Therapy for Routine Care of Injuries snw - Nondisplaced Fibular Ankle Fracture Treated With Immobilization snw - Tibial and Fibular Fractures snw - Tibial Fracture, Adult snw - How to Use a Wheelchair snw - Walking Boot, Adult snw Forms: - Medication Reconciliation Form snw - Thank You Letter snw - Antibiotic Education snw - Prescription Opioid Use snw Prescriptions: - Mobic 7.5 mg Oral Tablet - take 1 tablet by ORAL route once daily take with food; 20 tablet; Refills: 0, snw Product Selection Permitted - Tramadol 50 mg Oral Tablet - take 1 tablet by ORAL route every 8 hours as needed; 12 tablet; Refills: 0, snw Product Selection Permitted - Wheelchair - One wheelchair unit; ; Refills: 0, Product Selection Permitted snw Signatures: Dispatcher [employer] Brian Worthy MD MD cha Waters, Shelly, ORANGE PICKING SUPERVISOR-C ORANGE PICKING SUPERVISOR-Hariw Bárbara Lerner tw5 Zenaida Olson, RN RN aa9
[2022-05-10 00:59] VITALS: BP 119/72; TEMP 97.3; O2SAT 100
--- NOTE | 2022-05-10 18:27 | RAD REPORT ---
EXAM DESCRIPTION: RAD - Ankle Left 3 View - 05/10/2022 12:04 am CLINICAL HISTORY: The patient is 66 years old and is Female; Swelling TECHNIQUE: Frontal, lateral and oblique views of the left ankle. COMPARISON: No relevant prior studies available. FINDINGS: BONES/JOINTS: A nondisplaced lateral malleolar fracture is present. Ankle mortise is con gruent. The talar dome is round and smooth. No dislocation. SOFT TISSUES: Lateral ankle soft tissue swelling is present. IMPRESSION: Lateral malleolar fracture with associated soft tissue swelling. Electronically signed by: Xochitl Worthy MD 05/10/2022 12:33 AM METAL ANNEALER Due to temporary technical issues with the PACS/Fluency reporting system, reports are being signed by the in house radiologists without review as a courtesy to insure prompt reporting. The interpreting radiologist is fully responsible for the content of the report.
--- NOTE | 2022-05-10 18:31 | RAD REPORT ---
EXAM DESCRIPTION: RAD - Ankle Right 3 View - 05/10/2022 12:04 am CLINICAL HISTORY: The patient is 66 years old and is Female; Pain TECHNIQUE: Frontal, lateral and oblique views of the right ankle. COMPARISON: No relevant prior studies available. FINDINGS: BONES/JOINTS: Displaced lateral malleolar fracture is noted. Nondisplaced medial malleol ar fracture is present. No dislocation. SOFT TISSUES: Diffuse soft tissue swelling about the ankle is present. IMPRESSION: Bimalleolar fractures with associated soft tissue swelling. The lateral malleolar fractu re is displaced. Electronically signed by: Xochitl Worthy MD 05/10/2022 12:33 AM KNIT GOODS CUTTER HAND Due to temporary technical issues with the PACS/Fluency reporting system, reports are being signed by the in house radiologists without review as a courtesy to insure prompt reporting. The interpreting radiologist is fully responsible for the content of the report.
== END 2022-05-10 00:49 | disposition home or self-care (01) ==
LOC: ER 22:25
PROC: 2W3TX1Z Immobilization of Left Foot using Splint (ICD-10-PCS; principal; 2022-05-10)
PROC: 2W3SX1Z Immobilization of Right Foot using Splint (ICD-10-PCS; 2022-05-10)
DX: S82.301A Unspecified fracture of lower end of right tibia, initial encounter for closed fracture (principal); S82.831A Other fracture of upper and lower end of right fibula, initial encounter for closed fracture; S82.832A Other fracture of upper and lower end of left fibula, initial encounter for closed fracture; S93.401A Sprain of unspecified ligament of right ankle, initial encounter; W01.10XA Fall on same level from slipping, tripping and stumbling with subsequent striking against unspecified object, initial encounter; Z88.1 Allergy status to other antibiotic agents; Z88.2 Allergy status to sulfonamides
CPT/HCPCS: 99284